=== PATIENT | female | born 1940 | race Hispanic/Latino ===

== ENCOUNTER 2017-02-09 15:09 | Emergency (ER) | payer MEDICARE ==
[2017-02-09 15:27] VITALS: BP 126/77
[2017-02-09 16:07] LABS: Basophils % (Auto) 0.8 % (0.0-1.8); Eosinophils % (Auto) 3.3 % (0.0-4.3); Hematocrit 40.4 % (30.3-42.9); Hemoglobin 13.4 gm/dl (10.1-14.3); Mean Corpuscular HGB Conc 33 % (30-34); Mean Corpuscular Hemoglobin 29 pg (28-32); Mean Corpuscular Volume 87 fl (79-97); Platelet Count 254 K/mm3 (140-440); Red Blood Count 4.66 M/mm3 (3.65-5.03); Red Cell Distribution Width 13.1 % (13.2-15.2); White Blood Count 9.4 K/mm3 (4.5-11.0)
[2017-02-09 16:10] LABS: Anion Gap 19 mmol/L; Blood Urea Nitrogen 22 mg/dL (7-17); Calcium 9.3 mg/dL (8.4-10.2); Carbon Dioxide 26 mmol/L (22-30); Chloride 99.9 mmol/L (98-107); Glucose 84 mg/dL (65-100); Potassium 3.8 mmol/L (3.6-5.0); Sodium 141 mmol/L (137-145)
== END 2017-02-09 22:00 | disposition left against medical advice (07) ==
LOC: ED 15:09
DX: R07.9 Chest pain, unspecified (principal); Z53.21 Procedure and treatment not carried out due to patient leaving prior to being seen by health care provider
CPT/HCPCS: 36415; 80048; 84484; 85025; 93005; 93010

== ENCOUNTER 2018-04-11 15:13 | Inpatient (IN) | payer MEDICARE ==
--- NOTE | 2018-04-11 15:59 | Cat Scan Report ---
FINAL REPORT EXAM: CT HEAD/BRAIN WO CON HISTORY: Stroke symptoms TECHNIQUE: CT of the head was performed without intravenous contrast. PRIORS: None. FINDINGS: The ventricles are normal in shape and position. The ventricles are nondilated. No intracranial hemorrhage, mass, mass effect, midline shift or evidence of acute ischemic infarct. The basilar cisterns are patent. Mild areas of low-attenuation are seen in the periventricular and subcortical white matter. The paranasal sinuses are clear. The extracranial soft tissues demonstrate no abnormality. The calvarium is intact. The orbits are intact. There is a left mastoid effusion. IMPRESSION: 1. No acute intracranial abnormality. 2. Mild findings of chronic microvascular ischemic disease. 3. Left mastoid effusion.
[2018-04-11 16:24] LABS: Basophils # (Auto) 0.1 K/mm3 (0.0-0.1); Eosinophils # (Auto) 0.2 K/mm3 (0.0-0.4); Eosinophils % (Auto) 2.6 % (0.0-4.3); Hematocrit 39.5 % (30.3-42.9); Hemoglobin 13.5 gm/dl (10.1-14.3); Lymphocytes # (Auto) 1.3 K/mm3 (1.2-5.4); Lymphocytes % (Auto) 19.7 % (13.4-35.0); Mean Corpuscular HGB Conc 34 % (30-34); Mean Corpuscular Hemoglobin 29 pg (28-32); Mean Corpuscular Volume 84 fl (79-97); Monocytes # (Auto) 0.7 K/mm3 (0.0-0.8); Monocytes % (Auto) 10.4 % (0.0-7.3); Platelet Count 278 K/mm3 (140-440); Red Blood Count 4.72 M/mm3 (3.65-5.03); Red Cell Distribution Width 12.7 % (13.2-15.2)
[2018-04-11 16:30] LABS: INR 0.94 (0.87-1.13)
[2018-04-11 16:31] LABS: Thrombin Time 14.8 Sec. (15.1-19.6)
[2018-04-11 16:32] LABS: Partial Thromboplastin Time 45.3 Sec. (24.2-36.6)
[2018-04-11 16:40] LABS: Albumin 4.2 g/dL (3.9-5); Calcium 9.8 mg/dL (8.4-10.2)
[2018-04-11] MEDS ORDERED: MILK OF MAGNESIA PO PRN (16:43)
[2018-04-11] MEDS ORDERED: TYLENOL PO PRN (16:43)
[2018-04-11] MEDS ORDERED: SODIUM CHLORIDE FLUSH SYRINGE 10 ML IV PRN (16:43)
[2018-04-11] MEDS ORDERED: DULCOLAX PR PRN (16:43)
[2018-04-11] MEDS ORDERED: PHENERGAN PR PRN (16:43)
[2018-04-11] MEDS ORDERED: ZOFRAN IV PRN (16:43)
[2018-04-11] MEDS ORDERED: REGLAN PO PRN (16:43)
--- NOTE | 2018-04-11 16:43 | History and Physical Report ---
History of Present Illness Chief complaint: I got weak on my left side History of present illness: 77 YO Female with HTN, Anxiety, GERD, OA, Spinal Stenosis, presents to ED for evaluation. Pt states that she experienced acute onset of Left arm and leg weakness as well as slurred speech and facial weakness today. Pt states that symptoms resolved 2 hours prior to presentation to the hospital. EMS notified and patient transported to [facility] for further care and evaluation. Pt seen and evaluated in ED and found to have symptoms consistent with CVA. Teleneurology notified. Pt deemed not to be a candidate for TPA. Pt admitted to Telemetry, and initiated on CVA protocol. Past History Past Medical History: arthritis, GERD, hypertension, other (anxiety) Past Surgical History: hysterectomy, Other ( left wrist surgery, fissurectomy, cataract surgery, eyelid surgery) Social history: , Lives alone. denies: smoking, alcohol abuse, prescription drug abuse Family history: hypertension Medications and Allergies Allergies Allergy/AdvReac Type Severity Reaction Status Date / Time codeine Allergy Unknown Verified 04/11/18 15:43 crabmeat Allergy Swelling Uncoded 04/11/18 15:43 Home Medications Medication Instructions Recorded Confirmed Last Taken Type Diltiazem HCl [Diltiazem ER] 120 mg PO BID 10/18/13 04/11/18 10/18/13 History Labetalol [Normodyne TAB] 200 mg PO TID 10/18/13 04/11/18 10/18/13 History Levothyroxine [Synthroid] 25 mcg PO DAILY 10/18/13 04/11/18 10/18/13 History Nortriptyline [Pamelor] 25 mg PO DAILY 10/18/13 04/11/18 10/18/13 History Pantoprazole [Protonix TAB] 40 mg PO QWEEK 10/18/13 04/11/18 10/18/13 History ALPRAZolam [Xanax TAB] 0.25 mg PO TID PRN 04/11/18 04/11/18 Unknown History traMADol [Ultram] 50 mg PO Q4HR PRN 04/11/18 04/11/18 Unknown History Review of Systems Constitutional: no weight loss, no weight gain, no fever, no chills Ears, nose, mouth and throat: no ear pain, no ear discharge, no tinnitis, no decreased hearing, no nose pain, no nasal congestion Breasts: no change in shape, no swelling, no mass Cardiovascular: no chest pain, no orthopnea, no palpitations, no rapid/ irregular heart beat Respiratory: no cough, no cough with sputum, no excessive sputum, no hemoptysis , no shortness of breath Gastrointestinal: no nausea, no vomiting, no diarrhea, no constipation, no change in bowel habits Genitourinary Female: no pelvic pain, no flank pain, no dysuria Rectal: no pain, no incontinence, no bleeding Musculoskeletal: no neck stiffness, no neck pain, no shooting arm pain, no low back pain, no shooting leg pain Integumentary: no rash, no pruritis, no redness, no sores, no wounds Neurological: transient paralysis, weakness, numbness, change in speech, motor disturbance, no paralysis, no parathesias, no tingling, no seizures Psychiatric: no anxiety, no memory loss, no change in sleep habits, no sleep disturbances, no insomnia, no hypersomnia, no change in appetite Endocrine: no cold intolerance, no heat intolerance, no polyphagia, no excessive thirst, no polydipsia, no polyuria, no nocturia, no excessive sweating Hematologic/Lymphatic: no easy bruising, no easy bleeding, no lymphadenopathy, no lymphedema Allergic/Immunologic: no urticaria, no allergic rhinitis, no wheezing Exam - Constitutional General appearance: Present: no acute distress, well-nourished - EENT Eyes: Present: PERRL ENT: hearing intact, clear oral mucosa - Neck Neck: Present: supple, normal ROM - Respiratory Respiratory effort: normal Respiratory: bilateral: CTA - Cardiovascular Heart Sounds: Present: S1 & S2. Absent: rub, click - Extremities Extremities: pulses symmetrical, No edema Peripheral Pulses: within normal limits - Abdominal General gastrointestinal: Present: soft, non-tender, non-distended, normal bowel sounds Female genitourinary: Present: normal - Integumentary Integumentary: Present: clear, warm, dry - Musculoskeletal Musculoskeletal: left sided weakness - Psychiatric Psychiatric: appropriate mood/affect, intact judgment & insight - Neurologic Neurologic: CNII-XII intact, moves all extremities Results - Labs CBC & Chem 7: 04/11/18 15:59 04/11/18 15:59 Labs: Abnormal lab results 04/11/18 04/11/18 04/11/18 Range/Units 15:59 15:59 15:59 RDW 12.7 L (13.2-15.2) % [place] % (Auto) 10.4 H (0.0-7.3) % APTT 45.3 H (24.2-36.6) Sec. Thrombin Time 14.8 L (15.1-19.6) Sec. BUN 24 H (7-17) mg/dL Creatinine 1.4 H (0.7-1.2) mg/dL Alkaline Phosphatase 149 H (35-129) units/L Assessment and Plan - Patient Problems (1) CVA (cerebral vascular accident) Current Visit: Yes Status: Acute Qualifiers: CVA mechanism: unspecified Qualified Code(s): I63.9 - Cerebral infarction, unspecified Plan to address problem: Stroke Protocol: Admit to telemetry, CT Head, MRI Brain, MRA Brain, Echo, Carotid Doppler, PT/OT/ Speech Therapy, EEG, Antiplatelet therapy (2) ARF (acute renal failure) Current Visit: Yes Status: Acute Qualifiers: Acute renal failure type: with acute tubular necrosis Qualified Code(s): N17.0 - Acute kidney failure with tubular necrosis Plan to address problem: IVF resuscitation, monitor UOP q shift, (3) DVT prophylaxis Current Visit: Yes Status: Acute
--- NOTE | 2018-04-11 16:47 | Emergency Department Report ---
ED Neuro Deficit HPI - General Chief Complaint: Neuro Symptoms/Deficit Stated Complaint: WEAKNESS Time Seen by Provider: 04/11/18 15:35 Source: EMS Mode of arrival: Stretcher Limitations: No Limitations - History of Present Illness Initial Comments: Patient is a 77-year-old female who is presenting with weakness. Patient states that she felt some mild weakness in the left lower extremity this morning which then resolved. Patient then started feeling a numbness sensation in the left upper and lower extremity as well as left face. This persisted since its onset approximately 2 hours ago. Patient's family called 911 with concern for stroke. Patient on walking to the ambulance noted that she was having some weakness in the left lower extremity again. Patient was unable to bear weight well. Patient denies any headache nausea vomiting diarrhea fevers chills cough cold congestion at this time. - Related Data Home Medications: Home Medications Medication Instructions Recorded Confirmed Last Taken ALPRAZolam [Xanax TAB] 0.5 mg PO BID 10/18/13 10/18/13 10/18/13 Aspirin [[place] Aspirin] 81 mg PO DAILY 10/18/13 10/18/13 10/18/13 Calcium Carbonate/Vitamin D3 10/18/13 10/18/13 10/18/13 [Calcium 600 + Vit D3 Tablet] Diltiazem HCl [Diltiazem ER] 120 mg PO BID 10/18/13 10/18/13 10/18/13 Gluc [place]/MSM/Magnesium/Vit C BID 10/18/13 10/18/13 10/18/13 [Glucosamine Complex-MSM Cap] Labetalol [Normodyne TAB] 200 mg PO TID 10/18/13 10/18/13 10/18/13 Levothyroxine [Synthroid] 25 mcg PO DAILY 10/18/13 10/18/13 10/18/13 Multivitamin [Multi Vitamin Daily] 10/18/13 10/18/13 10/18/13 Nortriptyline [Pamelor] 25 mg PO DAILY 10/18/13 10/18/13 10/18/13 Pantoprazole [Protonix TAB] 40 mg PO DAILY 10/18/13 10/18/13 10/18/13 Simvastatin [Zocor] 20 mg PO QHS 10/18/13 10/18/13 10/18/13 cloNIDine [Catapres] 0.1 mg PO BID 10/18/13 10/18/13 Unknown Allergies/Adverse Reactions: Allergies Allergy/AdvReac Type Severity Reaction Status Date / Time codeine Allergy Unknown Verified 04/11/18 15:43 crabmeat Allergy Swelling Uncoded 04/11/18 15:43 ED Review of Systems ROS: Stated complaint: WEAKNESS Other details as noted in HPI Comment: All other systems reviewed and negative ED Past Medical Hx - Past Medical History Previous Medical History?: Yes Hx Hypertension: Yes Hx GERD: Yes Hx Arthritis: Yes Additional medical history: spinal stenosis - Surgical History Past Surgical History?: Yes Additional Surgical History: hysterectomy, left wrist surgery, fissurectomy, cataract surgery, eyelid surgery - Social History Smoking Status: Never Smoker - Medications Home Medications: Home Medications Medication Instructions Recorded Confirmed Last Taken Type ALPRAZolam [Xanax TAB] 0.5 mg PO BID 10/18/13 10/18/13 10/18/13 History Aspirin [[place] Aspirin] 81 mg PO DAILY 10/18/13 10/18/13 10/18/13 History Calcium Carbonate/Vitamin D3 10/18/13 10/18/13 10/18/13 History [Calcium 600 + Vit D3 Tablet] Diltiazem HCl [Diltiazem ER] 120 mg PO BID 10/18/13 10/18/13 10/18/13 History Gluc [place]/MSM/Magnesium/Vit C BID 10/18/13 10/18/13 10/18/13 History [Glucosamine Complex-MSM Cap] Labetalol [Normodyne TAB] 200 mg PO TID 10/18/13 10/18/13 10/18/13 History Levothyroxine [Synthroid] 25 mcg PO DAILY 10/18/13 10/18/13 10/18/13 History Multivitamin [Multi Vitamin Daily] 10/18/13 10/18/13 10/18/13 History Nortriptyline [Pamelor] 25 mg PO DAILY 10/18/13 10/18/13 10/18/13 History Pantoprazole [Protonix TAB] 40 mg PO DAILY 10/18/13 10/18/13 10/18/13 History Simvastatin [Zocor] 20 mg PO QHS 10/18/13 10/18/13 10/18/13 History cloNIDine [Catapres] 0.1 mg PO BID 10/18/13 10/18/13 Unknown History ED Neuro Physical Exam - General Limitations: No Limitations General appearance: alert, in no apparent distress Suspected Stroke: Yes - Head Head exam: Present: atraumatic, normocephalic - Eye Eye exam: Present: normal appearance - ENT ENT exam: Present: mucous membranes moist - Neck Neck exam: Present: normal inspection - Respiratory Respiratory exam: Present: normal lung sounds bilaterally. Absent: respiratory distress, wheezes, rales, rhonchi - Cardiovascular Cardiovascular Exam: Present: regular rate, normal rhythm. Absent: systolic murmur, diastolic murmur, rubs, gallop - GI/Abdominal GI/Abdominal exam: Present: soft, normal bowel sounds. Absent: distended, tenderness, guarding, rebound - Extremities Exam Extremities exam: Present: normal inspection - Back Exam Back exam: Present: normal inspection - Neurological Exam Neurological exam: Present: alert, oriented X3 - NIHSS Assessment Interval: Baseline 1a. Level of Consciousness: alert 1b. LOC Questions: answers correctly 1c. LOC Commands: performs tasks correctly 2. Best Gaze: normal 3. Visual: no visual loss 4. Facial Palsy: normal symmetrical movement 5b. Motor Arm Right: no drift 5a. Motor Arm Left: no drift 6a. Motor Leg Left: no drift 6b. Motor Leg Right: no drift 7. Limb Ataxia: absent 8. Sensory: mild/moderate sensory loss 9. Best Language: no aphasia 10. Dysarthria: normal 11. Extinction/Inattention: no abnormality Total Score: 1 Stroke Severity: Minor Stroke - Psychiatric Psychiatric exam: Present: normal affect, normal mood - Skin Skin exam: Present: warm, dry, intact, normal color. Absent: rash - Lab Data Result diagrams: 04/11/18 15:59 04/11/18 15:59 Lab Results 04/11/18 04/11/18 04/11/18 Range/Units 15:59 15:59 15:59 WBC 6.6 (4.5-11.0) K/mm3 RBC 4.72 (3.65-5.03) M/mm3 Hgb 13.5 (10.1-14.3) gm/dl Hct 39.5 (30.3-42.9) % MCV 84 (79-97) fl MCH 29 (28-32) pg MCHC 34 (30-34) % RDW 12.7 L (13.2-15.2) % Plt Count 278 (140-440) K/mm3 Lymph % (Auto) 19.7 (13.4-35.0) % [place] % (Auto) 10.4 H (0.0-7.3) % Eos % (Auto) 2.6 (0.0-4.3) % Baso % (Auto) 1.0 (0.0-1.8) % Lymph # 1.3 (1.2-5.4) K/mm3 [place] # 0.7 (0.0-0.8) K/mm3 Eos # 0.2 (0.0-0.4) K/mm3 Baso # 0.1 (0.0-0.1) K/mm3 Seg Neutrophils % 66.3 (40.0-70.0) % Seg Neutrophils # 4.4 (1.8-7.7) K/mm3 PT 13.0 (12.2-14.9) Sec. INR 0.94 (0.87-1.13) APTT 45.3 H (24.2-36.6) Sec. Thrombin Time 14.8 L (15.1-19.6) Sec. Sodium (137-145) mmol/L Potassium (3.6-5.0) mmol/L Chloride (98-107) mmol/L Carbon Dioxide (22-30) mmol/L Anion Gap mmol/L BUN (7-17) mg/dL Creatinine (0.7-1.2) mg/dL Estimated GFR ml/min BUN/Creatinine Ratio % Glucose (65-100) mg/dL Calcium (8.4-10.2) mg/dL Total Bilirubin (0.1-1.2) mg/dL AST (5-40) units/L ALT (7-56) units/L Alkaline Phosphatase (35-129) units/L CK-MB (CK-2) 2.0 (0.0-4.0) ng/mL Troponin T < 0.010 (0.00-0.029) ng/mL Total Protein (6.3-8.2) g/dL Albumin (3.9-5) g/dL Albumin/Globulin Ratio % 04/11/ Range/Units 15:59 WBC (4.5-11.0) K/mm3 RBC (3.65-5.03) M/mm3 Hgb (10.1-14.3) gm/dl Hct (30.3-42.9) % MCV (79-97) fl MCH (28-32) pg MCHC (30-34) % RDW (13.2-15.2) % Plt Count (140-440) K/mm3 Lymph % (Auto) (13.4-35.0) % [place] % (Auto) (0.0-7.3) % Eos % (Auto) (0.0-4.3) % Baso % (Auto) (0.0-1.8) % Lymph # (1.2-5.4) K/mm3 [place] # (0.0-0.8) K/mm3 Eos # (0.0-0.4) K/mm3 Baso # (0.0-0.1) K/mm3 Seg Neutrophils % (40.0-70.0) % Seg Neutrophils # (1.8-7.7) K/mm3 PT (12.2-14.9) Sec. INR (0.87-1.13) APTT (24.2-36.6) Sec. Thrombin Time (15.1-19.6) Sec. Sodium 139 (137-145) mmol/L Potassium 3.9 (3.6-5.0) mmol/L Chloride 100.5 (98-107) mmol/L Carbon Dioxide 27 (22-30) mmol/L Anion Gap 15 mmol/L BUN 24 H (7-17) mg/dL Creatinine 1.4 H (0.7-1.2) mg/dL Estimated GFR 36 ml/min BUN/Creatinine Ratio 17 % Glucose 81 (65-100) mg/dL Calcium 9.8 (8.4-10.2) mg/dL Total Bilirubin 0.30 (0.1-1.2) mg/dL AST 19 (5-40) units/L ALT 13 (7-56) units/L Alkaline Phosphatase 149 H (35-129) units/L CK-MB (CK-2) (0.0-4.0) ng/mL Troponin T (0.00-0.029) ng/mL Total Protein 7.1 (6.3-8.2) g/dL Albumin 4.2 (3.9-5) g/dL Albumin/Globulin Ratio 1.4 % - EKG Data -: EKG Interpreted by Me EKG shows normal: sinus rhythm, axis, intervals, QRS complexes, ST-T waves Rate: normal Interpretation: normal EKG - Radiology Data CT of the head shows no acute process - Medical Decision Making Dr. Trinidad with neurology was consulted. He saw this patient via bedside robot. Patien was assessed L it was agreed that the patient does have symptoms that are suggestive of a very mild CVA. Patient's NIH score is less than 2 and the indications for TPA are not there. Patient will be admitted will be given aspirin and will be admitted to the hospital service at this time. T is Critical Care Time: Yes Critical care time in (mins) excluding proc time.: 30 Critical care attestation.: If time is entered above; I have spent that time in minutes in the direct care of this critically ill patient, excluding procedure time. ED Disposition Clinical Impression: Paresthesia CVA (cerebral vascular accident) Qualifiers: CVA mechanism: unspecified Qualified Code(s): I63.9 - Cerebral infarction, unspecified Disposition: DC-09 OP ADMIT IP TO THIS HOSP Is pt being admited?: Yes Does the pt Need Aspirin: No Condition: Stable Referrals: PRIMARY CARE, [Primary Care Provider] - 3-5 Days
[2018-04-11] MEDS ORDERED: PRAVACHOL PO SCH (22:00)
[2018-04-11] MEDS ORDERED: NON-FORMULARY (Simvastatin 20 MG) PO SCH (22:00)
[2018-04-11] MEDS: PEPCID PO SCH (22:36)
[2018-04-11] MEDS: XANAX PO SCH (22:36)
[2018-04-12] MEDS: SYNTHROID PO SCH (05:39)
[2018-04-12 06:47] LABS: Chol/HDL Ratio 3.29 %
[2018-04-12] MEDS: ASPIRIN PO SCH (09:13)
[2018-04-12] MEDS: PEPCID PO SCH (09:13)
[2018-04-12] MEDS: PAMELOR PO SCH (09:13)
[2018-04-12] MEDS: PROTONIX PO SCH (09:13)
[2018-04-12] MEDS: XANAX PO SCH ×2 (09:14→22:05)
--- NOTE | 2018-04-12 11:33 | Magnetic Resonance Report ---
MRI OF THE BRAIN WITHOUT CONTRAST: HISTORY: Stroke PROCEDURE: Multiplanar, multisequence MR imaging of the brain without IV contrast was performed. FINDINGS: Compared to the CT head dated 04/11/18. MR demonstrates a linear area of diffusion restriction in the posterolateral right thalamus measuring 2 x 9 mm on image 16. No other areas of diffusion restriction are identified. There is no evidence for hemorrhage, mass or extra-axial fluid collection. A 5 mm chronic infarct is identified in the posterior right cerebellar hemisphere on T2 image 7. No additional chronic infarct is appreciated. Mild nonspecific chronic white matter changes are noted. The midline structures are central. The basal cisterns are patent. Normal ventricular size. The orbital cavities and sella turcica demonstrate no abnormality. The visualized paranasal sinuses and mastoid air cells are well aerated. IMPRESSION: Focal subacute ischemic infarct in the right thalamus as described above. Chronic 5 mm infarct in the right cerebellum. Mild nonspecific chronic white matter changes.
--- NOTE | 2018-04-12 11:36 | Magnetic Resonance Report ---
MRA HEAD WITHOUT CONTRAST HISTORY: Stroke. [id number] imaging with MIP reformations of the s[place]ogon of [place] is submitted. The right ICA is occluded. There is filling of the right SAMIA and right MCA via an anterior communicating artery and a right posterior communicating artery. There is otherwise normal endovascular signal throughout the anterior and posterior circulations. No evidence for hemodynamically significant stenosis, occlusion or aneurysm. IMPRESSION: Occluded right ICA. The cerebral arteries are patent.
--- NOTE | 2018-04-12 14:48 | Progress Note ---
Assessment and Plan Assessment and plan: 77 YO Female with HTN, Anxiety, GERD, OA, Spinal Stenosis, presents to ED for evaluation. Pt states that she experienced acute onset of Left arm and leg weakness as well as slurred speech and facial weakness carotid doppler VASCULAR LAB PRELIMINARY REPORT RT ICA APPEARS OCCLUDED LT <50% STENOSIS BY DOPPLER VELOCITIES BILATERAL ANTEGRADE VERTEBRAL FLOW MR brain Focal subacute ischemic infarct in the right thalamus as described above. Chronic 5 mm infarct in the right cerebellum. Mild nonspecific chronic white matter changes. MRA brain Occluded right ICA. The cerebral arteries are patent. CVA continue stroke protocol, likely related on carotid stenosis, will consult vascular and neuro LDL 168, HDL 72, has not taken asa in 2 wks, per her opthalmologist, planned for eye surgery she self stopped statin many months ago, because she heard "its bad for you" Rt ICVA occlusion vascular sx consult ARF (acute renal failure) likely vasomotor nephropathy, IVF, recheck BMP in am DVT prophylaxis Current Visit: Yes Status: Acute History Interval history: Review of systems Constitutional: No fevers, no malaise, no joint pains CVS: No chest pain, no orthopnea, no dyspnea on exertion, no pedal edema GI: No abdominal pain, no diarrhea, no vomiting, no constipation Respiratory: No shortness of breath, no wheezing, no coughing Hospitalist Physical - Physical exam Narrative exam: General.: Appears well, no distress, nontoxic HEENT: Moist mucous membranes, extraocular muscles intact, no lymphadenopathy Neck: supple Cardiac: S1-S2 heard Lungs: clear to auscultation bilaterally Abdomen: soft , nontender, nondistended, bowel sounds positive Extremities: no edema clubbing or cyanosis Skin: no rash or lesions Neurologic: no gross focal deficits Psych: appropriate behavior, appropriate mood, corporative, judgment intact - Constitutional Vitals: Temp Pulse Resp BP Pulse Ox 97.5 F L 75 18 158/75 96 04/12/18 05:09 04/12/18 05:09 04/12/18 10:00 04/12/18 05:09 04/12/18 05:09 General appearance: Present: no acute distress, well-nourished Results - Labs CBC & Chem 7: 04/11/18 15:59 04/11/18 15:59 Labs: Laboratory Last Values WBC 6.6 K/mm3 (4.5-11.0) 04/11/18 15:59 RBC 4.72 M/mm3 (3.65-5.03) 04/11/18 15:59 Hgb 13.5 gm/dl (10.1-14.3) 04/11/18 15:59 Hct 39.5 % (30.3-42.9) 04/11/18 15:59 MCV 84 fl (79-97) 04/11/18 15:59 MCH 29 pg (28-32) 04/11/18 15:59 MCHC 34 % (30-34) 04/11/18 15:59 RDW 12.7 % (13.2-15.2) L 04/11/18 15:59 Plt Count 278 K/mm3 (140-440) 04/11/18 15:59 Lymph % (Auto) 19.7 % (13.4-35.0) 04/11/18 15:59 [place] % (Auto) 10.4 % (0.0-7.3) H 04/11/18 15:59 Eos % (Auto) 2.6 % (0.0-4.3) 04/11/18 15:59 Baso % (Auto) 1.0 % (0.0-1.8) 04/11/18 15:59 Lymph # 1.3 K/mm3 (1.2-5.4) 04/11/18 15:59 [place] # 0.7 K/mm3 (0.0-0.8) 04/11/18 15:59 Eos # 0.2 K/mm3 (0.0-0.4) 04/11/18 15:59 Baso # 0.1 K/mm3 (0.0-0.1) 04/11/18 15:59 Seg Neutrophils % 66.3 % (40.0-70.0) 04/11/18 15:59 Seg Neutrophils # 4.4 K/mm3 (1.8-7.7) 04/11/18 15:59 PT 13.0 Sec. (12.2-14.9) 04/11/18 15:59 INR 0.94 (0.87-1.13) 04/11/18 15:59 APTT 45.3 Sec. (24.2-36.6) H 04/11/18 15:59 Thrombin Time 14.8 Sec. (15.1-19.6) L 04/11/18 15:59 Sodium 139 mmol/L (137-145) 04/11/18 15:59 Potassium 3.9 mmol/L (3.6-5.0) 04/11/18 15:59 Chloride 100.5 mmol/L (98-107) 04/11/18 15:59 Carbon Dioxide 27 mmol/L (22-30) 04/11/18 15:59 Anion Gap 15 mmol/L 04/11/18 15:59 BUN 24 mg/dL (7-17) H 04/11/18 15:59 Creatinine 1.4 mg/dL (0.7-1.2) H 04/11/18 15:59 Estimated GFR 36 ml/min 04/11/18 15:59 BUN/Creatinine Ratio 17 % 04/11/18 15:59 Glucose 81 mg/dL (65-100) 04/11/18 15:59 Calcium 9.8 mg/dL (8.4-10.2) 04/11/18 15:59 Total Bilirubin 0.30 mg/dL (0.1-1.2) 04/11/18 15:59 AST 19 units/L (5-40) 04/11/18 15:59 ALT 13 units/L (7-56) 04/11/18 15:59 Alkaline Phosphatase 149 units/L (35-129) H 04/11/18 15:59 Total Creatine Kinase 50 units/L (30-135) 04/11/18 15:59 CK-MB (CK-2) 2.0 ng/mL (0.0-4.0) 04/11/18 15:59 CK-MB (CK-2) Rel Index 4.0 (0-4) 04/11/18 15:59 Troponin T < 0.010 ng/mL (0.00-0.029) 04/11/18 15:59 Total Protein 7.1 g/dL (6.3-8.2) 04/11/18 15:59 Albumin 4.2 g/dL (3.9-5) 04/11/18 15:59 Albumin/Globulin Ratio 1.4 % 04/11/18 15:59 Triglycerides 136 mg/dL (2-149) 04/12/18 06:05 Cholesterol 237 mg/dL (50-199) H 04/12/18 06:05 LDL Cholesterol Direct 168 mg/dL (50-130) H 04/12/18 06:05 HDL Cholesterol 72 mg/dL (40-59) H 04/12/18 06:05 Cholesterol/HDL Ratio 3.29 % 04/12/18 06:05
[2018-04-12] MEDS ORDERED: BENADRYL PO ONE (21:50)
[2018-04-13] MEDS: SYNTHROID PO SCH (06:07)
[2018-04-13] MEDS: XANAX PO SCH ×2 (10:26→21:43)
[2018-04-13] MEDS: PROTONIX PO SCH (10:26)
[2018-04-13] MEDS: ASPIRIN PO SCH (10:26)
[2018-04-13] MEDS: PAMELOR PO SCH (10:26)
[2018-04-13] MEDS: APRESOLINE IV PRN ×2 (11:25→18:31)
[2018-04-13] MEDS ORDERED: ULTRAM PO PRN (14:31)
[2018-04-13] MEDS ORDERED: XANAX PO PRN (14:31)
[2018-04-13] MEDS ORDERED: BENADRYL PO PRN (14:33)
[2018-04-13] MEDS: NACL 0.45% 1000 ML 1,000 ML IV SCH ×2 (14:34→22:53)
--- NOTE | 2018-04-13 14:42 | Progress Note ---
Hospitalist Physical - Constitutional Vitals: Temp Pulse Resp BP Pulse Ox 98.1 F 113 H 18 190/110 94 04/13/18 00:03 04/13/18 11:25 04/13/18 00:03 04/13/18 11:25 04/13/18 00:03 General appearance: Present: no acute distress, well-nourished Results - Labs CBC & Chem 7: 04/11/18 15:59 04/11/18 15:59 Labs: Laboratory Last Values WBC 6.6 K/mm3 (4.5-11.0) 04/11/18 15:59 RBC 4.72 M/mm3 (3.65-5.03) 04/11/18 15:59 Hgb 13.5 gm/dl (10.1-14.3) 04/11/18 15:59 Hct 39.5 % (30.3-42.9) 04/11/18 15:59 MCV 84 fl (79-97) 04/11/18 15:59 MCH 29 pg (28-32) 04/11/18 15:59 MCHC 34 % (30-34) 04/11/18 15:59 RDW 12.7 % (13.2-15.2) L 04/11/18 15:59 Plt Count 278 K/mm3 (140-440) 04/11/18 15:59 Lymph % (Auto) 19.7 % (13.4-35.0) 04/11/18 15:59 [place] % (Auto) 10.4 % (0.0-7.3) H 04/11/18 15:59 Eos % (Auto) 2.6 % (0.0-4.3) 04/11/18 15:59 Baso % (Auto) 1.0 % (0.0-1.8) 04/11/18 15:59 Lymph # 1.3 K/mm3 (1.2-5.4) 04/11/18 15:59 [place] # 0.7 K/mm3 (0.0-0.8) 04/11/18 15:59 Eos # 0.2 K/mm3 (0.0-0.4) 04/11/18 15:59 Baso # 0.1 K/mm3 (0.0-0.1) 04/11/18 15:59 Seg Neutrophils % 66.3 % (40.0-70.0) 04/11/18 15:59 Seg Neutrophils # 4.4 K/mm3 (1.8-7.7) 04/11/18 15:59 PT 13.0 Sec. (12.2-14.9) 04/11/18 15:59 INR 0.94 (0.87-1.13) 04/11/18 15:59 APTT 45.3 Sec. (24.2-36.6) H 04/11/18 15:59 Thrombin Time 14.8 Sec. (15.1-19.6) L 04/11/18 15:59 Sodium 139 mmol/L (137-145) 04/11/18 15:59 Potassium 3.9 mmol/L (3.6-5.0) 04/11/18 15:59 Chloride 100.5 mmol/L (98-107) 04/11/18 15:59 Carbon Dioxide 27 mmol/L (22-30) 04/11/18 15:59 Anion Gap 15 mmol/L 04/11/18 15:59 BUN 24 mg/dL (7-17) H 04/11/18 15:59 Creatinine 1.4 mg/dL (0.7-1.2) H 04/11/18 15:59 Estimated GFR 36 ml/min 04/11/18 15:59 BUN/Creatinine Ratio 17 % 04/11/18 15:59 Glucose 81 mg/dL (65-100) 04/11/18 15:59 Calcium 9.8 mg/dL (8.4-10.2) 04/11/18 15:59 Total Bilirubin 0.30 mg/dL (0.1-1.2) 04/11/18 15:59 AST 19 units/L (5-40) 04/11/18 15:59 ALT 13 units/L (7-56) 04/11/18 15:59 Alkaline Phosphatase 149 units/L (35-129) H 04/11/18 15:59 Total Creatine Kinase 50 units/L (30-135) 04/11/18 15:59 CK-MB (CK-2) 2.0 ng/mL (0.0-4.0) 04/11/18 15:59 CK-MB (CK-2) Rel Index 4.0 (0-4) 04/11/18 15:59 Troponin T < 0.010 ng/mL (0.00-0.029) 04/11/18 15:59 Total Protein 7.1 g/dL (6.3-8.2) 04/11/18 15:59 Albumin 4.2 g/dL (3.9-5) 04/11/18 15:59 Albumin/Globulin Ratio 1.4 % 04/11/18 15:59 Triglycerides 136 mg/dL (2-149) 04/12/18 06:05 Cholesterol 237 mg/dL (50-199) H 04/12/18 06:05 LDL Cholesterol Direct 168 mg/dL (50-130) H 04/12/18 06:05 HDL Cholesterol 72 mg/dL (40-59) H 04/12/18 06:05 Cholesterol/HDL Ratio 3.29 % 04/12/18 06:05
[2018-04-13] MEDS ORDERED: DILTIAZEM HCL 120 MG PO SCH (14:45)
[2018-04-13] MEDS: HALFPRIN EC PO SCH (17:16)
--- NOTE | 2018-04-13 18:17 | Consultation ---
History of Present Illness - Reason for Consult Consult date: 04/13/18 Right Carotid Occlusion with CVA Requesting physician: LASHONDA VALDEZ - History of Present Illness This pt is a 77 yo female that was admitted on 04/11/18 due to an acute onset of left sided numbness and weakness. She states she awoke, not feeling right. However, she later attempted to get out of her chair to ambulate to her kitchen and was unable to bear weight on her left leg. She also c/o numbness to her left foot and hand at the same time. EMS was activated and she was transported to the hospital. Teleneurology was consulted. She was felt to have likely suffered a stroke by outside of the time window to receive TPA. A MRI showed a focal subacute ischemic right thalamic stroke with a chronic 5mm right cerebellar infarct. A carotid duplex and MRI suggest a right carotid artery occlusion without significant stenosis on the left. A vascular surgery consult has been requested to further evaluate. The pt has a h/o a previous stroke in ~2002. She reports to have been told that her right carotid artery was occluded at that time (though no documentation can confirm this). She was placed on Coumadin at that time and was subsequently converted to antiplatelet therapy. She was told to hold her aspirin about 2 weeks ago for a bilateral eyelid surgery which was scheduled to be performed this coming Monday. The pt states her weakness has improved, but she continues to have numbness to her entire right side. Past History Past Medical History: arthritis, GERD, hypertension, other (anxiety, Chronic back pain with multiple disc herniations per pt report) Past Surgical History: hysterectomy, Other ( left wrist surgery, fissurectomy, cataract surgery, eyelid surgery) Social history: (Pt and husbands 58th anniversity will be in 3 days), lives with family. denies: smoking, alcohol abuse, prescription drug abuse Family history: hypertension Medications and Allergies Allergies Allergy/AdvReac Type Severity Reaction Status Date / Time codeine Allergy Unknown Verified 04/11/18 15:43 crabmeat Allergy Swelling Uncoded 04/11/18 15:43 Home Medications Medication Instructions Recorded Confirmed Last Taken Type Diltiazem HCl [Diltiazem ER] 120 mg PO BID 10/18/13 04/11/18 10/18/13 History Labetalol [Normodyne TAB] 200 mg PO TID 10/18/13 04/11/18 10/18/13 History Levothyroxine [Synthroid] 25 mcg PO DAILY 10/18/13 04/11/18 10/18/13 History Nortriptyline [Pamelor] 25 mg PO DAILY 10/18/13 04/11/18 10/18/13 History Pantoprazole [Protonix TAB] 40 mg PO QWEEK 10/18/13 04/11/18 10/18/13 History ALPRAZolam [Xanax TAB] 0.25 mg PO TID PRN 04/11/18 04/11/18 Unknown History traMADol [Ultram] 50 mg PO Q4HR PRN 04/11/18 04/11/18 Unknown History Aspirin [Aspir-Low] 81 mg PO DAILY 04/13/18 04/13/18 1 Day Ago History ~04/12/18 Calcium Carbonate/Vitamin D3 1 tab PO QDAY 04/13/18 04/13/18 Unknown History [Calcium 600 with Vit D Chew Tb] Diltiazem HCl [Diltiazem ER] 120 mg PO BID 04/13/18 04/13/18 1 Day Ago History ~04/12/18 Glucosamine HCl 1,500 mg PO BID 04/13/18 04/13/18 1 Day Ago History ~04/12/18 Labetalol HCl 200 mg PO TID 04/13/18 04/13/18 Unknown History Ranitidine HCl [Acid Control] 150 mg PO DAILY 04/13/18 04/13/18 1 Day Ago History ~04/12/18 Active Meds: Active Medications Acetaminophen (Tylenol) 650 mg PO Q4H PRN PRN Reason: Pain, Mild (1-3) Last Admin: 04/13/18 17:14 Dose: 650 mg Alprazolam (Xanax) 0.5 mg PO BID [facility] Last Admin: 04/13/18 10:26 Dose: 0.5 mg Alprazolam (Xanax) 0.25 mg PO TID PRN PRN Reason: Anxiety Last Admin: 04/13/18 17:16 Dose: 0.25 mg Aspirin (Halfprin Ec) 81 mg PO DAILY [facility] Last Admin: 04/13/18 17:16 Dose: 81 mg Atorvastatin Calcium (Lipitor) 40 mg PO QHS [facility] Last Admin: 04/12/18 22:07 Dose: 40 mg Bisacodyl (Dulcolax) 10 mg [place] QDAY PRN PRN Reason: Constipation Calcium/Vitamin D (Oysco D 500 Mg-200 Unit) 1 each PO QDAY [facility] Diltiazem HCl (Cardizem Cd) 120 mg PO BID [facility] Diphenhydramine HCl (Benadryl) 25 mg PO Q6H PRN PRN Reason: Itching Hydralazine HCl (Apresoline) 5 mg IV Q6HR PRN PRN Reason: Hypertension Last Admin: 04/13/18 11:25 Dose: 5 mg Sodium Chloride (Nacl 0.45% 1000 Ml) 1,000 mls @ 125 mls/hr IV DIRECT [facility] Last Admin: 04/13/18 14:34 Dose: 125 mls/hr Labetalol HCl (Normodyne) 200 mg PO TID [facility] Levothyroxine Sodium (Synthroid) 25 mcg PO DAILY@0600 [facility] Last Admin: 04/13/18 06:07 Dose: 25 mcg Magnesium Hydroxide (Milk Of Magnesia) 30 ml PO Q4H PRN PRN Reason: Constipation Metoclopramide HCl (Reglan) 10 mg PO Q6H PRN PRN Reason: Nausea And Vomiting Miscellaneous Medication (Glucosamine Hcl [Glucosamine Hcl]) 1,500 mg PO BID [facility] Miscellaneous Medication (Ranitidine Hcl [Acid Control]) 150 mg PO DAILY [facility] Nortriptyline HCl (Pamelor) 25 mg PO DAILY [facility] Last Admin: 04/13/18 10:26 Dose: 25 mg Ondansetron HCl (Zofran) 4 mg IV Q8H PRN PRN Reason: N/V unrelieved by Reglan Pantoprazole Sodium (Protonix) 40 mg PO DAILY [facility] Last Admin: 04/13/18 10:26 Dose: 40 mg Promethazine HCl (Phenergan) 25 mg MS Q6H PRN PRN Reason: Nausea And Vomiting Sodium Chloride (Sodium Chloride Flush Syringe 10 Ml) 10 ml IV PRN PRN PRN Reason: LINE FLUSH Tramadol HCl (Ultram) 50 mg PO Q4HR PRN PRN Reason: Pain Review of Systems All systems: negative Exam - Constitutional Vitals: Temp Pulse Resp BP Pulse Ox 98.1 F 113 H 18 190/110 94 04/13/18 00:03 04/13/18 11:25 04/13/18 00:03 04/13/18 11:25 04/13/18 00:03 General appearance: Present: no acute distress - EENT Eyes: Present: EOM intact ENT: hearing intact - Neck Neck: Present: supple - Respiratory Respiratory effort: normal - Extremities Extremities: no ischemia - Psychiatric Psychiatric: appropriate mood/affect, intact judgment & insight, cooperative - Neurologic Neurologic: other (right sided numbness) Results - Labs CBC & Chem 7: 04/11/18 15:59 04/11/18 15:59 Assessment and Plan This pt presents with an acute onset of left sided numbness and weakness. MRI was reported as sub-acute right thalamic CVA. H/o previous chronic R cerebellar infarct. She was on anti-platelet medication (Aspirin) until approximately 2 weeks ago. This was held in prep for a 2nd eyelid surgery. Carotid duplex and MRA (time of flight) suggest right carotid artery occlusion. This is consistent with the history provided from the pt from a previous stroke approximately 15 years ago. Unfortunately, neither study is reliable to exclude string sign. Right carotid artery occlusion is based (at this point) purely upon the pt provided history (which is certainly subject to her misinterpretation). Given how long ago this happened, it can not currently be corroborated with either hospital or office records. If the carotid is occluded then surgery is not indicated. The pt will need a CT angiogram of the neck to confirm carotid artery occlusion. She has TRICIA and will need gaby-angiogram hydration to protect against contrast nephrology. This certainly poses a risk of further kidney injury. Given the circumstances, the overall risk of the study vs. potential for future events should be considered. If the carotid is occluded, this could represent a carotid stump syndrome vs small vessel disease. Agree with neurology consult to determine best medical management. Await their assessment. - Patient Problems (1) Carotid stenosis with cerebral infarction less than 8 weeks ago Current Visit: Yes Status: Acute (2) Carotid occlusion, right Current Visit: Yes Status: Suspected (3) CVA (cerebral vascular accident) Current Visit: Yes Status: Acute Qualifiers: CVA mechanism: unspecified Qualified Code(s): I63.9 - Cerebral infarction, unspecified (4) ARF (acute renal failure) Current Visit: Yes Status: Acute Qualifiers: Acute renal failure type: with acute tubular necrosis Qualified Code(s): N17.0 - Acute kidney failure with tubular necrosis
--- NOTE | 2018-04-13 18:31 | Consultation ---
History of Present Illness Consult date: 04/13/18 Requesting physician: LASHONDA HESS Reason for Consult: stroke Chief complaint: stroke History of present illness: This 77-year-old right-handed white female noted a feeling of falling over to her left but would catch herself once or twice a week or 2 ago. On April 11 she did not feel good but cannot define that feeling, but was able to help her put groceries in cabinets but then sat down and felt shaky, blood pressure was checked but okay and then tried to take 3 steps and couldn't support herself and noted left-sided numbness from face down to her foot and was taken to the hospital. She was also weak on the left side and developed a pins and needles feeling in the left hand and foot. She was better yesterday and was able to walk with a walker though was not attempted today because physical therapy wouldn't see her because of her heart rate being high. She has had no difficulty with speech or swallowing. She had been off aspirin 81 mg for nearly 2 weeks for upcoming eyelid surgery. She does not know if Zocor or Lipitor bothered her in the past (though Lipitor didn't bother taken yesterday) so she got a non-statin medication from her PCP. Due to some mixup, she did not get a refill of it. Today she still has some pins and needles in the left foot and hand and she thinks some numbness of the left arm. MRA of head showed occlusion of right ICA. MRI showed small right basal ganglia acute infarct and old right lacunar cerebellar hemisphere infarct. 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 Occlusion of the right internal carotid artery was found at the time and treated initially with Plavix. Later for unknown reason she was placed on warfarin but complained of having to get so many blood tests and was later put back on Plavix and later changed to just the 81 mg aspirin. Past History Past Medical History: arthritis, GERD, hypertension (takes diltiazem and labetalol and also when necessary, clonidine), stroke (2 right eye with loss of vision to right eye with loss of vision and right internal carotid artery occlusion), other (anxiety) Past Surgical History: hysterectomy, Other ( left wrist surgery, fissurectomy, cataract surgery, eyelid surgery) Social history: (2 children, 3 grandchildren), Lives alone, other ( worked as an insurance counselor but retired). denies: smoking, alcohol abuse, prescription drug abuse (never) Family history: diabetes (mother (diet-controlled), sister), hypertension (both parents, 2 sisters and a brother), stroke (fatal in both parents, no history of aneurysms in the family), other (no history of epilepsy) Medications and Allergies Allergies Allergy/AdvReac Type Severity Reaction Status Date / Time codeine Allergy Unknown Verified 04/11/18 15:43 crabmeat Allergy Swelling Uncoded 04/11/18 15:43 Home Medications Medication Instructions Recorded Confirmed Last Taken Type Diltiazem HCl [Diltiazem ER] 120 mg PO BID 10/18/13 04/11/18 10/18/13 History Labetalol [Normodyne TAB] 200 mg PO TID 10/18/13 04/11/18 10/18/13 History Levothyroxine [Synthroid] 25 mcg PO DAILY 10/18/13 04/11/18 10/18/13 History Nortriptyline [Pamelor] 25 mg PO DAILY 10/18/13 04/11/18 10/18/13 History Pantoprazole [Protonix TAB] 40 mg PO QWEEK 10/18/13 04/11/18 10/18/13 History ALPRAZolam [Xanax TAB] 0.25 mg PO TID PRN 04/11/18 04/11/18 Unknown History traMADol [Ultram] 50 mg PO Q4HR PRN 04/11/18 04/11/18 Unknown History Aspirin [Aspir-Low] 81 mg PO DAILY 04/13/18 04/13/18 1 Day Ago History ~04/12/18 Calcium Carbonate/Vitamin D3 1 tab PO QDAY 04/13/18 04/13/18 Unknown History [Calcium 600 with Vit D Chew Tb] Diltiazem HCl [Diltiazem ER] 120 mg PO BID 04/13/18 04/13/18 1 Day Ago History ~04/12/18 Glucosamine HCl 1,500 mg PO BID 04/13/18 04/13/18 1 Day Ago History ~04/12/18 Labetalol HCl 200 mg PO TID 04/13/18 04/13/18 Unknown History Ranitidine HCl [Acid Control] 150 mg PO DAILY 04/13/18 04/13/18 1 Day Ago History ~04/12/18 Active Meds: Active Medications Acetaminophen (Tylenol) 650 mg PO Q4H PRN PRN Reason: Pain, Mild (1-3) Last Admin: 04/13/18 17:14 Dose: 650 mg Alprazolam (Xanax) 0.5 mg PO BID [facility] Last Admin: 04/13/18 10:26 Dose: 0.5 mg Alprazolam (Xanax) 0.25 mg PO TID PRN PRN Reason: Anxiety Last Admin: 04/13/18 17:16 Dose: 0.25 mg Aspirin (Halfprin Ec) 81 mg PO DAILY [facility] Last Admin: 04/13/18 17:16 Dose: 81 mg Atorvastatin Calcium (Lipitor) 40 mg PO QHS [facility] Last Admin: 04/12/18 22:07 Dose: 40 mg Bisacodyl (Dulcolax) 10 mg [place] QDAY PRN PRN Reason: Constipation Calcium/Vitamin D (Oysco D 500 Mg-200 Unit) 1 each PO QDAY [facility] Diltiazem HCl (Cardizem Cd) 120 mg PO BID [facility] Diphenhydramine HCl (Benadryl) 25 mg PO Q6H PRN PRN Reason: Itching Hydralazine HCl (Apresoline) 5 mg IV Q6HR PRN PRN Reason: Hypertension Last Admin: 04/13/18 11:25 Dose: 5 mg Sodium Chloride (Nacl 0.45% 1000 Ml) 1,000 mls @ 125 mls/hr IV DIRECT [facility] Last Admin: 04/13/18 14:34 Dose: 125 mls/hr Labetalol HCl (Normodyne) 200 mg PO TID [facility] Levothyroxine Sodium (Synthroid) 25 mcg PO DAILY@0600 [facility] Last Admin: 04/13/18 06:07 Dose: 25 mcg Magnesium Hydroxide (Milk Of Magnesia) 30 ml PO Q4H PRN PRN Reason: Constipation Metoclopramide HCl (Reglan) 10 mg PO Q6H PRN PRN Reason: Nausea And Vomiting Miscellaneous Medication (Glucosamine Hcl [Glucosamine Hcl]) 1,500 mg PO BID [facility] Miscellaneous Medication (Ranitidine Hcl [Acid Control]) 150 mg PO DAILY [facility] Nortriptyline HCl (Pamelor) 25 mg PO DAILY [facility] Last Admin: 04/13/18 10:26 Dose: 25 mg Ondansetron HCl (Zofran) 4 mg IV Q8H PRN PRN Reason: N/V unrelieved by Reglan Pantoprazole Sodium (Protonix) 40 mg PO DAILY [facility] Last Admin: 04/13/18 10:26 Dose: 40 mg Promethazine HCl (Phenergan) 25 mg [place] Q6H PRN PRN Reason: Nausea And Vomiting Sodium Chloride (Sodium Chloride Flush Syringe 10 Ml) 10 ml IV PRN PRN PRN Reason: LINE FLUSH Tramadol HCl (Ultram) 50 mg PO Q4HR PRN PRN Reason: Pain Review of Systems All systems: negative (occasional headache, no dizziness, sometimes snores but no pauses, insomnia, no naps but may doze off at the television, never sleepy driving. Hands go to sleep during the night. No memory problems) Physical Examination - Vital Signs Vital Signs: Vital Signs Pulse Ox 98 04/11/18 15:32 - Physical Exam Narrative exam: General Appearance: well developed well nourished (per BMI) late 70s white female in [facility]. HEENT: atraumatic, normocephalic; no bruits, 2+ Courtney without soreness or induration or enlargement, sclerae nonicteric. Oropharynx pink and moist. Neck: supple, no bruits. Heart: no murmur or extra sounds. Fast rate. Extremities: no clubbing, cyanosis or edema. 1+ dorsalis pedis pulses bilaterally. Neurologic Exam: Mental Status: Awake, alert, oriented X 3, speech is clear, names pen and point of pen, and abstracts well. Names President but gives Pensky as Water Valve Mechanic , serial 7's intact, no right-left confusion, gets 2 of 3 objects at 3 minutes, spells WORLD backwards correctly. Cranial Nerves: murray full in the left eye, no light perception in right eye, no papilledema, SVPs present, right pupil 2 mm with no reaction to light, left pupil 1.5 mm with normal reaction to light and to accommodation, EOMs full without nystagmus or diplopia, facial sensation intact to pinprick and light touch, no facial weakness, Orr is midline, palate rises symmetrically to phonation and gags are positive right better than left, shoulder shrug is 5 X 2 , tongue protrudes midline. Cerebellar: finger to nose and heel to srivastava are normal. Sensory: intact to light touch, pinprick is increased in the right ring finger and decreased in the left leg, decreased vibrations left hand. Double simultaneous stimulation is intact. Special Tests: Tinel's is negative at the carpal and cubital tunnels and Guyon' s canals bilaterally. Motor Exam Upper Extremities: no drift or pronation, Tate intact. Executive Administrator are 5 X 2, tone is normal. No atrophy or fasciculations are noted visually. Motor Exam Lower Extremities: no leg lag, quadriceps and anterior tibials and gastrocnemius are 5 X 2. Tate intact. Tone is normal. No atrophy or fasciculations are noted visually. Reflexes: Palmomental, snout and jaw jerk are negative. Triceps, biceps and brachioradialis are 2 bilaterally. Nedra's is negative bilaterally. Knee jerks are 2 and ankle jerks are 0 bilaterally even with reinforcement and without clonus. Toes are downgoing right and upgoing left to Babinski testing. - Assessment Assessment Interval: Baseline - Level of Consciousness 1a. Level of Consciousness: alert - LOC Questions 1b. LOC Questions: answers correctly - LOC Command 1c. LOC Commands: performs tasks correctly - Best Gaze 2. Best Gaze: normal - Visual 3. Visual: no visual loss - Facial Palsy 4. Facial Palsy: normal symmetrical movement - Motor Arm 5b. Motor Arm Right: no drift - Motor Leg 6a. Motor Leg Left: no drift - Limb Ataxia 7. Limb Ataxia: absent - Sensory 8. Sensory: mild/moderate sensory loss - Best Language 9. Best Language: no aphasia - Dysarthria 10. Dysarthria: normal - Extinction and Inattention 11. Extinction/Inattention: no abnormality Results - Laboratory Findings CBC and BMP: 04/11/18 15:59 04/11/18 15:59 Abnormal Lab Findings: Abnormal Labs 04/11/18 04/11/18 04/11/18 15:59 15:59 15:59 RDW 12.7 L [place] % (Auto) 10.4 H APTT 45.3 H Thrombin Time 14.8 L BUN 24 H Creatinine 1.4 H Alkaline Phosphatase 149 H Cholesterol LDL Cholesterol Direct HDL Cholesterol 04/12/18 06:05 RDW [place] % (Auto) APTT Thrombin Time BUN Creatinine Alkaline Phosphatase Cholesterol 237 H LDL Cholesterol Direct 168 H HDL Cholesterol 72 H Assessment and Plan Impression: 1. Lacunar infarct, new 2. 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 Hypertension 4. Carpal tunnel syndrome Plan: 1. Echo with bubbles is pending. 2. I reduced her aspirin to 81 mg. No need for a higher dose since she has been off it for nearly 2 weeks so has not "failed" aspirin. 3. I told her it would be best to see if she can get eyelid surgery while still on aspirin, to prevent further strokes. 4. She will continue the Lipitor since it so far has not bothered her. If it later does, I would suggest trying pravastatin since that is the least likely to cause muscle side effects. 5. Gave her a print out suggesting she take vitamin B6 200 mg a day for carpal tunnel syndrome and warned her about rare buildup of B6 causing more paresthesias for which she would need to reduce the dose. I suggested wrist splints if B6 fails, to wear at night since these would tend to get in her way during the day. 6. I cancelled EEG since not needed. 50 minutes spent including review of 100s of MRI images. She was seen by someone from vascular surgery and thought a test was being ordered related to her carotid but I don't see any new test ordered so I will turn that over to Dr. Hess. Thank you for an interesting consultation on this pleasant late 70s lady. You may want to suggest to her PCP that she get a Lovenox bridge if she has to stop aspirin prior to a surgery.
[2018-04-13] MEDS: CARDIZEM CD PO SCH (21:43)
[2018-04-13] MEDS: NORMODYNE PO SCH (21:44)
[2018-04-13] MEDS ORDERED: GLUCOSAMINE HCL 1500 MG PO SCH (22:00)
[2018-04-14] MEDS: SYNTHROID PO SCH (06:25)
[2018-04-14] MEDS ORDERED: VITAMIN D3 PO SCH (10:00)
[2018-04-14] MEDS ORDERED: PEPCID PO SCH (10:00)
[2018-04-14] MEDS ORDERED: NON-FORMULARY (Ranitidine Hcl [Acid Control] 150 MG) PO SCH (10:00)
[2018-04-14] MEDS ORDERED: VIT D TB PO SCH (10:00)
[2018-04-14] MEDS ORDERED: OYSCO D 500 MG-200 UNIT PO SCH (10:00)
[2018-04-14] MEDS ORDERED: CALCIUM CARBONATE PO SCH (10:00)
[2018-04-14] MEDS: PROTONIX PO SCH (10:32)
[2018-04-14] MEDS: HALFPRIN EC PO SCH (10:32)
[2018-04-14] MEDS: XANAX PO SCH (10:32)
[2018-04-14] MEDS: CARDIZEM CD PO SCH (10:33)
[2018-04-14] MEDS: NORMODYNE PO SCH ×2 (10:37→14:24)
--- NOTE | 2018-04-14 11:09 | Progress Note ---
Assessment and Plan Patient with rigth carotid occlusion according to carotid duplex and MRA. she has a h/o amaurosis fugax in 2002 and and she remembers was told that her right ICa was occluded. However, since she came with left hemiparesis at this time it is resonable to hydrate patient and get neck CTA to exclude any possibilty of flow. Subjective Date of service: 04/14/18 Interval history: Patient fels well, motor goor all 4 extremities, admits to residual paresthesias on the left Objective - Constitutional Vitals: Vital Signs - 12hr 04/14/18 04/14/18 04/14/18 00:16 04:59 07:50 Temperature 97.7 F 97.6 F Pulse Rate 104 H 83 104 H Respiratory 17 20 16 Rate Blood Pressure 161/81 104/55 166/78 O2 Sat by Pulse 96 96 96 Oximetry 04/14/18 04/14/18 10:33 10:37 Temperature Pulse Rate 104 H 104 H Respiratory Rate Blood Pressure 166/78 166/78 O2 Sat by Pulse Oximetry - Labs CBC & Chem 7: 04/11/18 15:59 04/11/18 15:59
[2018-04-14] MEDS: PAMELOR PO SCH (11:13)
--- NOTE | 2018-04-14 12:51 | Cat Scan Report ---
CTA NECK : 04/14/18 CLINICAL: Right carotid occlusion. TECHNIQUE: Volumetric acquisition and 1.25 mm axial scan reconstructionsafter the uneventful intravenous injection of 100-cc Omnipaque 350. Consent was obtained prior to the administration of the IV contrast. Coronal and sagittal reformats were performed. Postprocessing with volume rendering was performed. FINDINGS: The right internal carotid artery is completely occluded at its origin with no residual flow identified. Normal right external carotid artery. Calcified plaque at the origin of the left ICA and a 20% stenosis of the proximal left ICA at its origin. Normal vertebral arteries with dominant left vertebral artery. IMPRESSION: 1. 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 2. Mild (20%) stenosis of the proximal left ICA based on the NASCET method of stenosis calculation. 3. Normal vertebral arteries.
--- NOTE | 2018-04-14 12:54 | Progress Note ---
Hospitalist Physical - Constitutional Vitals: Temp Pulse Resp BP Pulse Ox 97.7 F 97 H 16 169/82 94 04/14/18 12:40 04/14/18 12:40 04/14/18 12:40 04/14/18 12:40 04/14/18 12:40 General appearance: Present: no acute distress Results - Labs CBC & Chem 7: 04/11/18 15:59 04/11/18 15:59 Labs: Laboratory Last Values WBC 6.6 K/mm3 (4.5-11.0) 04/11/18 15:59 RBC 4.72 M/mm3 (3.65-5.03) 04/11/18 15:59 Hgb 13.5 gm/dl (10.1-14.3) 04/11/18 15:59 Hct 39.5 % (30.3-42.9) 04/11/18 15:59 MCV 84 fl (79-97) 04/11/18 15:59 MCH 29 pg (28-32) 04/11/18 15:59 MCHC 34 % (30-34) 04/11/18 15:59 RDW 12.7 % (13.2-15.2) L 04/11/18 15:59 Plt Count 278 K/mm3 (140-440) 04/11/18 15:59 Lymph % (Auto) 19.7 % (13.4-35.0) 04/11/18 15:59 Preston % (Auto) 10.4 % (0.0-7.3) H 04/11/18 15:59 Eos % (Auto) 2.6 % (0.0-4.3) 04/11/18 15:59 Baso % (Auto) 1.0 % (0.0-1.8) 04/11/18 15:59 Lymph # 1.3 K/mm3 (1.2-5.4) 04/11/18 15:59 Preston # 0.7 K/mm3 (0.0-0.8) 04/11/18 15:59 Eos # 0.2 K/mm3 (0.0-0.4) 04/11/18 15:59 Baso # 0.1 K/mm3 (0.0-0.1) 04/11/18 15:59 Seg Neutrophils % 66.3 % (40.0-70.0) 04/11/18 15:59 Seg Neutrophils # 4.4 K/mm3 (1.8-7.7) 04/11/18 15:59 PT 13.0 Sec. (12.2-14.9) 04/11/18 15:59 INR 0.94 (0.87-1.13) 04/11/18 15:59 APTT 45.3 Sec. (24.2-36.6) H 04/11/18 15:59 Thrombin Time 14.8 Sec. (15.1-19.6) L 04/11/18 15:59 Sodium 139 mmol/L (137-145) 04/11/18 15:59 Potassium 3.9 mmol/L (3.6-5.0) 04/11/18 15:59 Chloride 100.5 mmol/L (98-107) 04/11/18 15:59 Carbon Dioxide 27 mmol/L (22-30) 04/11/18 15:59 Anion Gap 15 mmol/L 04/11/18 15:59 BUN 24 mg/dL (7-17) H 04/11/18 15:59 Creatinine 1.4 mg/dL (0.7-1.2) H 04/11/18 15:59 Estimated GFR 36 ml/min 04/11/18 15:59 BUN/Creatinine Ratio 17 % 04/11/18 15:59 Glucose 81 mg/dL (65-100) 04/11/18 15:59 Calcium 9.8 mg/dL (8.4-10.2) 04/11/18 15:59 Total Bilirubin 0.30 mg/dL (0.1-1.2) 04/11/18 15:59 AST 19 units/L (5-40) 04/11/18 15:59 ALT 13 units/L (7-56) 04/11/18 15:59 Alkaline Phosphatase 149 units/L (35-129) H 04/11/18 15:59 Total Creatine Kinase 50 units/L (30-135) 04/11/18 15:59 CK-MB (CK-2) 2.0 ng/mL (0.0-4.0) 04/11/18 15:59 CK-MB (CK-2) Rel Index 4.0 (0-4) 04/11/18 15:59 Troponin T < 0.010 ng/mL (0.00-0.029) 04/11/18 15:59 Total Protein 7.1 g/dL (6.3-8.2) 04/11/18 15:59 Albumin 4.2 g/dL (3.9-5) 04/11/18 15:59 Albumin/Globulin Ratio 1.4 % 04/11/18 15:59 Triglycerides 136 mg/dL (2-149) 04/12/18 06:05 Cholesterol 237 mg/dL (50-199) H 04/12/18 06:05 LDL Cholesterol Direct 168 mg/dL (50-130) H 04/12/18 06:05 HDL Cholesterol 72 mg/dL (40-59) H 04/12/18 06:05 Cholesterol/HDL Ratio 3.29 % 04/12/18 06:05
--- NOTE | 2018-04-14 14:45 | Discharge Summary ---
Providers - Providers Date of Admission: 04/11/18 16:43 Attending physician: LASHONDA VALDEZ MD 04/11/18 16:43 Occupational Therapy Evaluate and Treat [CONS] Routine Comment: Reason For Exam: Neuro deficits Physical Therapy Evaluation and Treat [CONS] Routine Comment: Reason For Exam: Neuro deficits 04/11/18 16:44 Speech Therapy Evaluation and Treat [CONS] Routine Reason For Exam: swallow eval 04/12/18 14:55 Consult to Physician [CONS] Routine Comment: Consulting Provider: SHELDON HOLLIS Physician Instructions: Reason For Exam: cva/ carotid stenosis 04/12/18 14:56 Consult to Physician [CONS] Routine Comment: Consulting Provider: SHELDON GUILLEN Physician Instructions: Reason For Exam: carotid stenosis Primary care physician: DIGITAL STRATEGY DIRECTOR Hospitalization Condition: Stable Procedures: CTA neck 1. 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 2. Mild (20%) stenosis of the proximal left ICA based on the NASCET method of stenosis calculation. 3. Normal vertebral arteries. Disposition: DC-30 STILL A PATIENT Exam - Constitutional Vitals: Temp Pulse Resp BP Pulse Ox 97.7 F 97 H 16 169/82 94 04/14/18 12:40 04/14/18 14:24 04/14/18 12:40 04/14/18 14:24 04/14/18 12:40 Plan Follow up with: PRIMARY CAREMD [Primary Care Provider] - 3-5 Days Prescriptions: Pravastatin [Pravachol] 40 mg PO QHS #30 tablet Aspirin EC [Aspirin Enteric Coated TAB] 81 mg PO QDAY #30 tablet.
[2018-04-14 16:05] VITALS: BP 135/63
== END 2018-04-14 18:00 | disposition home or self-care (01) | DRG 64 ==
LOC: ED 15:13 → 4A 16:43
PROVIDERS: ADMIT Internal Medicine; ATTEND Internal Medicine
DX: I63.231 Cerebral infarction due to unspecified occlusion or stenosis of right carotid arteries (principal); N17.0 Acute kidney failure with tubular necrosis; G81.94 Hemiplegia, unspecified affecting left nondominant side; M19.90 Unspecified osteoarthritis, unspecified site; R29.701 NIHSS score 1; F41.9 Anxiety disorder, unspecified; K21.9 Gastro-esophageal reflux disease without esophagitis; Z90.710 Acquired absence of both cervix and uterus; Z82.49 Family history of ischemic heart disease and other diseases of the circulatory system; Z88.5 Allergy status to narcotic agent; Z79.01 Long term (current) use of anticoagulants; Z79.899 Other long term (current) drug therapy; Z79.82 Long term (current) use of aspirin
CPT/HCPCS: 36415; 70450; 70498; 70544; 70551; 80053; 80061; 82550; 82553; 84484; 85025; 85610; 85670; 85730; 93005; 93010; 93306; 93880; A9270-GY; G8978-GP; G8979-GP; G8987-GO; G8988-GO; G8996-GN; G8997-GN; G8998-GN; J0360; Q9967

== ENCOUNTER 2018-11-14 13:13 | Outpatient (CLI) | payer MEDICARE ==
--- NOTE | 2018-11-14 14:18 | Mammography Report ---
BONE DENSITY STUDY: Osteoporosis screening. DEFINITIONS: BMD = Bone Mineral Density T-score = BMD related to mean peak bone mass of young adult (mean expressed in Standard Deviation) Z-score = Age matched BMD expressed in SD World Health Organization (WHO) Diagnostic Criteria Normal T-score > -1 SD Osteopenia T-score between -1 and -2.4 SD Osteoporosis T-score -2.5 SD or below FINDINGS: The weighted average BMD of lumbar spine L1-L2 is 1.153 with a T-score of 1.6. The L3 and L4 bodies compromise with degenerative sclerosis. The weighted average BMD of the left hip is 1.011 with a T-score of 0.6. IMPRESSION: The patient's average T-score is diagnostic for normal bone density and low relative risk for fracture. NOTE: BMD is not the only risk factor for fracture; also consider factors such as the patient's age, risk of falling, previous osteoporotic fracture, family history of osteoporotic fractures, current smoker, and low body weight. Soni's triangle is a region of interest in femur, predominantly of trabecular bone. It is not a true anatomic site, and ISCD does not recommend its use clinically.
== END 2018-11-14 13:14 | disposition home or self-care (01) ==
LOC: MAMMO 13:13
PROVIDERS: ATTEND Internal Medicine
DX: M85.88 Other specified disorders of bone density and structure, other site (principal); K21.9 Gastro-esophageal reflux disease without esophagitis; I10 Essential (primary) hypertension; M19.90 Unspecified osteoarthritis, unspecified site; Z90.710 Acquired absence of both cervix and uterus
CPT/HCPCS: 77080

== ENCOUNTER 2019-03-22 10:17 | Inpatient (IN) | payer MEDICARE ==
--- NOTE | 2019-03-22 13:16 | Consultation ---
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 Recently patient had symptoms suggestive of Amaurosis fugax. Vascular wants to do CTA neck to r/o carotid artery disease. Patient currently denies any symptoms. Most recent creatinine was 1.8. Nephrology was consulted for recommendation to prevent contrast induced Nephropathy. Past History Past Medical History: hypertension, hyperlipidemia, other (PAD, Panic attack) Medications and Allergies Allergies Allergy/AdvReac Type Severity Reaction Status Date / Time codeine Allergy Unknown Verified 04/11/18 15:43 crabmeat Allergy Swelling Uncoded 04/11/18 15:43 Home Medications Medication Instructions Recorded Confirmed Last Taken Type Diltiazem HCl [Diltiazem 24Hr ER] 120 mg PO BID 10/18/13 03/22/19 03/22/19 07:00 History Labetalol [Labetalol 200mg TAB] 200 mg PO TID 10/18/13 03/22/19 03/22/19 07:00 History Levothyroxine [Synthroid] 25 mcg PO DAILY 10/18/13 03/22/19 03/22/19 07:00 History Nortriptyline [Pamelor] 25 mg PO DAILY 10/18/13 03/22/19 03/22/19 07:00 History Pantoprazole [Protonix TAB] 40 mg PO 1400 10/18/13 03/22/19 03/21/19 14:00 History ALPRAZolam [Xanax TAB] 0.25 mg PO TID PRN 04/11/18 03/22/19 03/22/19 07:00 History traMADol [Ultram 50 MG tab] 50 mg PO Q4HR PRN 04/11/18 03/22/19 Unknown History Calcium Carbonate/Vitamin D3 1 tab PO QDAY 04/13/18 03/22/19 03/22/19 07:00 History [Calcium 600 with Vit D Chew Tb] Glucosamine HCl 1,500 mg PO BID 04/13/18 03/22/19 03/22/19 07:00 History Ranitidine HCl [Acid Control] 150 mg PO DAILY 04/13/18 03/22/19 03/22/19 07:00 History Aspirin EC 81 mg PO QDAY #30 tablet. 04/14/18 03/22/19 03/22/19 07:00 Rx Pravastatin [Pravachol] 40 mg PO QHS #30 tablet 04/14/18 03/22/19 03/21/19 22:00 Rx Melatonin [Melatonin 3MG TAB] 3 mg PO HS 03/22/19 03/22/19 03/21/19 22:00 History Vitamin B-6 100 mg PO DAILY 03/22/19 03/22/19 03/22/19 07:00 History Active Meds: Active Medications Acetylcysteine (Mucomyst Oral) 600 mg PO Q12HR MEJIA Sodium Bicarbonate 150 meq/ (Sterile Water) 1,150 mls @ 100 mls/hr IV DIRECT MEJIA Review of Systems Constitutional: no weight loss, no weight gain, no fever, no chills, no anorexia, no weakness Breasts: deferred Cardiovascular: high blood pressure, no chest pain, no orthopnea, no palpitations, no edema, no syncope, no lightheadedness, no shortness of breath, no leg edema, no decreased exercise tolerance Respiratory: no cough, no hemoptysis, no shortness of breath, no dyspnea on exertion Gastrointestinal: no abdominal pain, no nausea, no vomiting, no melena Genitourinary Female: no dysuria, no hematuria Rectal: no bleeding Musculoskeletal: no morning stiffness, no muscle weakness Integumentary: no rash, no sores, no wounds, no jaundice Neurological: loss of vision (R eye), no paralysis, no weakness, no seizures, no syncope, no change in speech, no change in mentation, no confusion Psychiatric: anxiety attacks Exam - Vital Signs Vital signs: Vital Signs Temp Pulse Resp BP Pulse Ox 98.4 F 71 20 148/64 98 03/22/19 12:31 03/22/19 12:31 03/22/19 12:31 03/22/19 12:31 03/22/19 12:31 - General Appearance General appearance: well-developed, well-nourished, appears stated age, other (no distress) EENT: ATNC Neck: Present: neck supple, trachea midline Respiratory: Clear to Ascultation Heart: regular, S1S2, no murmurs Gastrointestinal: Present: normoactive bowel sounds. Absent: tenderness, distended Integumentary: no rash, warm and dry Neurologic: no asterixis, alert and oriented x3, other (R eye blind) Musculoskeletal: Present: other (no edema) Results - Lab Results 03/22/19 13:16 03/22/19 13:16 Assessment and Plan 1. Amaurosis fugax: Suspected carotid disease. CTA of Head and neck ordered. Follow results. 2. CKD stage 3: Renal function appears to be at her baseline. Contrast prophylaxis. On bicarb IV and Mucomyst. Explained patient the renal risks of IV contrast. Monitor renal function. 3. Hypertension. 4. Previous h/o CVA.
[2019-03-22 13:50] LABS: Basophils % (Auto) 0.7 % (0.0-1.8); Eosinophils # (Auto) 0.2 K/mm3 (0.0-0.4); Eosinophils % (Auto) 2.6 % (0.0-4.3); Hematocrit 36.7 % (30.3-42.9); Hemoglobin 12.4 gm/dl (10.1-14.3); Lymphocytes # (Auto) 1.3 K/mm3 (1.2-5.4); Lymphocytes % (Auto) 18.4 % (13.4-35.0); Mean Corpuscular HGB Conc 34 % (30-34); Mean Corpuscular Volume 85 fl (79-97); Monocytes # (Auto) 0.5 K/mm3 (0.0-0.8); Monocytes % (Auto) 7.3 % (0.0-7.3); Platelet Count 252 K/mm3 (140-440); Red Blood Count 4.33 M/mm3 (3.65-5.03); Red Cell Distribution Width 13.1 % (13.2-15.2)
[2019-03-22] MEDS: MUCOMYST ORAL PO SCH ×2 (13:58→21:31)
[2019-03-22] MEDS ORDERED: SODIUM BICARBONATE 150 MEQ in STERILE WATER 1,000 ML IV SCH (14:00)
[2019-03-22 14:15] LABS: Albumin 4.2 g/dL (3.9-5); Calcium 9.5 mg/dL (8.4-10.2)
[2019-03-22] MEDS ORDERED: APRESOLINE IV PRN (20:24)
[2019-03-22] MEDS ORDERED: DILAUDID IV PRN (22:44)
[2019-03-22] MEDS ORDERED: ZOFRAN IV PRN (22:44)
[2019-03-22] MEDS ORDERED: PERCOCET 5/325 PO PRN (22:44)
[2019-03-22] MEDS ORDERED: TYLENOL PO PRN (22:44)
[2019-03-22] MEDS ORDERED: SODIUM CHLORIDE FLUSH SYRINGE 10 ML IV PRN (22:44)
[2019-03-22] MEDS ORDERED: ULTRAM PO PRN (22:45)
[2019-03-22] MEDS ORDERED: XANAX PO PRN (22:45)
[2019-03-22] MEDS ORDERED: DILTIAZEM HCL 120 MG PO SCH (23:00)
[2019-03-22] MEDS ORDERED: NACL 0.9% 1000 ML 1,000 ML IV SCH (23:00)
[2019-03-22] MEDS: CARDIZEM CD PO SCH (23:56)
[2019-03-23 05:43] LABS: Basophils % (Auto) 0.7 % (0.0-1.8); Eosinophils # (Auto) 0.2 K/mm3 (0.0-0.4); Eosinophils % (Auto) 2.7 % (0.0-4.3); Hematocrit 35.4 % (30.3-42.9); Hemoglobin 12.3 gm/dl (10.1-14.3); Lymphocytes # (Auto) 1.4 K/mm3 (1.2-5.4); Lymphocytes % (Auto) 22.5 % (13.4-35.0); Mean Corpuscular HGB Conc 35 % (30-34); Mean Corpuscular Volume 84 fl (79-97); Monocytes # (Auto) 0.6 K/mm3 (0.0-0.8); Monocytes % (Auto) 9.8 % (0.0-7.3); Platelet Count 227 K/mm3 (140-440); Red Blood Count 4.22 M/mm3 (3.65-5.03)
[2019-03-23] MEDS ORDERED: SYNTHROID PO SCH (06:00)
[2019-03-23 06:10] LABS: Calcium 9.4 mg/dL (8.4-10.2)
--- NOTE | 2019-03-23 06:53 | Event Note ---
Date: 03/22/19 See h/p in reports Amaurosis Fugax TRICIA/CKD HTN Hypothyroidism
--- NOTE | 2019-03-23 07:02 | History and Physical Report ---
CHIEF COMPLAINT: Right eye blindness with sudden onset. HISTORY OF PRESENT ILLNESS: A 78-year-old female with stable chronic kidney disease, hypertension, being admitted for sudden onset of right eye blindness. The patient had multiple CVAs in the past. The patient is being evaluated for evaluation of amaurosis fugax. Most recent creatinine was 1.8. The patient is being admitted to prevent contrast-induced nephropathy and to get CT angiogram of the neck to rule out carotid artery disease. No focal deficits. PAST MEDICAL HISTORY: Significant for hypertension, hypothyroidism, chronic kidney disease, hyperlipidemia, and GERD. PAST SURGICAL HISTORY: Hysterectomy, many years ago. SOCIAL HISTORY: Does not smoke. Lives with her , who is very supportive. FAMILY HISTORY: Hypertension. REVIEW OF SYSTEMS: Significant for the sudden onset of blindness in the right eye, which is resolving. Otherwise, review of systems negative. PHYSICAL EXAMINATION: GENERAL: Elderly female, cooperative during examination. VITAL SIGNS: Blood pressure is 170/68, temperature is 97.6, pulse is 82, respirations are 18, sats are 94%. HEENT: Unremarkable. Pupils equal and reactive. NECK: Supple, no lymphadenopathy, no thyromegaly. LUNGS: Clear to auscultation and percussion. Good air entry. CARDIOVASCULAR: S1, S2 heard. No gallop, no murmur, no rub. Apical impulse in the left fifth intercostal space and midclavicular line. ABDOMEN: Soft and benign. No hepatosplenomegaly. No guarding, no rigidity. Hernial orifices are normal. EXTREMITIES: Good pedal pulses. No pedal edema. CENTRAL NERVOUS SYSTEM: Alert and oriented x 4, nonfocal exam. SKIN: Normal. LABORATORY DATA: Significant for normal CBC, white count of 7100, BUN and creatinine is 24 and 1.5, sodium and potassium are normal, glucose is 119. Neck CTA was done and the head CTA was done, reports are pending. ASSESSMENT AND PLAN: 1. Amaurosis fugax. CTA neck and CTA head done.Report pending MRI head and MRA and MRI of the brain were ordered. Complete stroke workup was not ordered. 2. Acute kidney injury. The patient to be on IV fluids, creatinine is 1.6. 3. Chronic kidney disease, defer to Nephrology, Dr. Davis. 4. Hypertension. Continue antihypertensives. 5. Hypothyroidism. Continue levothyroxine. 6. Generalized anxiety disorder. Continue Xanax. 7. Deep venous thrombosis prophylaxis, heparin 5000 q. 12 hours. JOB# [id number] INOCENCIA/CRISTIANE PEREZ
--- NOTE | 2019-03-23 07:53 | Progress Note ---
Assessment and Plan Assessment and plan: --Rt eye blindness; Amaurosis Fugax; with history of total occlusion of right carotid artery Evaluated by vascular, follow current workup, consult vascular if needed --Acute kidney injury; vasomotor nephropathy Gentle hydration, avoid nephrotoxins, today creatinine is within normal limits Nephrology following --Hypokalemia; replace KCl monitor electrolytes --Hypertension; new current antihypertensives when necessary hydralazine --History of hypothyroidism; Synthroid --History of anxiety disorder; continue Xanax and supportive care --DVT prophylaxis; Lovenox Monitor closely and adjust management as needed History Interval history: 78-year-old female patient with significant past medical history of multiple CVAs, total occlusion of right carotid artery since 2002 Evaluated by vascular in the past, was admitted for further evaluation and manag ement of right eye blindness sudden onset as well as acute renal failure Neuro workup is in progress. Patient was evaluated by neurology and vascular getting the last admission Hospitalist Physical - Constitutional Vitals: Temp Pulse Resp BP Pulse Ox 97.7 F 86 18 145/78 95 03/23/19 02:23 03/23/19 02:23 03/23/19 02:23 03/23/19 02:23 03/23/19 02:23 Results - Labs CBC & Chem 7: 03/23/19 04:44 03/23/19 04:44 Labs: Laboratory Last Values WBC 6.2 K/mm3 (4.5-11.0) 03/23/19 04:44 RBC 4.22 M/mm3 (3.65-5.03) 03/23/19 04:44 Hgb 12.3 gm/dl (10.1-14.3) 03/23/19 04:44 Hct 35.4 % (30.3-42.9) 03/23/19 04:44 MCV 84 fl (79-97) 03/23/19 04:44 MCH 29 pg (28-32) 03/23/19 04:44 MCHC 35 % (30-34) H 03/23/19 04:44 RDW 13.0 % (13.2-15.2) L 03/23/19 04:44 Plt Count 227 K/mm3 (140-440) 03/23/19 04:44 Lymph % (Auto) 22.5 % (13.4-35.0) 03/23/19 04:44 Brantley % (Auto) 9.8 % (0.0-7.3) H 03/23/19 04:44 Eos % (Auto) 2.7 % (0.0-4.3) 03/23/19 04:44 Baso % (Auto) 0.7 % (0.0-1.8) 03/23/19 04:44 Lymph # 1.4 K/mm3 (1.2-5.4) 03/23/19 04:44 Brantley # 0.6 K/mm3 (0.0-0.8) 03/23/19 04:44 Eos # 0.2 K/mm3 (0.0-0.4) 03/23/19 04:44 Baso # 0.0 K/mm3 (0.0-0.1) 03/23/19 04:44 Seg Neutrophils % 64.3 % (40.0-70.0) 03/23/19 04:44 Seg Neutrophils # 4.0 K/mm3 (1.8-7.7) 03/23/19 04:44 Sodium 145 mmol/L (137-145) 03/23/19 04:44 Potassium 3.4 mmol/L (3.6-5.0) L 03/23/19 04:44 Chloride 101.4 mmol/L (98-107) 03/23/19 04:44 Carbon Dioxide 30 mmol/L (22-30) 03/23/19 04:44 17 mmol/L 03/23/19 04:44 BUN 18 mg/dL (7-17) H 03/23/19 04:44 1.2 mg/dL (0.7-1.2) 03/23/19 04:44 Estimated GFR 43 ml/min 03/23/19 04:44 15 % 03/23/19 04:44 Glucose 108 mg/dL (65-100) H 03/23/19 04:44 5.8 % (4-6) 03/22/19 23:08 Calcium 9.4 mg/dL (8.4-10.2) 03/23/19 04:44 0.40 mg/dL (0.1-1.2) 03/22/19 13:16 AST 21 units/L (5-40) 03/22/19 13:16 ALT 17 units/L (7-56) 03/22/19 13:16 136 units/L (35-129) H 03/22/19 13:16 6.7 g/dL (6.3-8.2) 03/22/19 13:16 4.2 g/dL (3.9-5) 03/22/19 13:16 1.7 % 03/22/19 13:16 Active Medications - Current Medications Current Medications: Generic Name Dose Route Start Last Admin Trade Name Freq PRN Reason Stop Dose Admin Acetaminophen 650 mg 03/22/19 22:44 03/22/19 23:52 Tylenol PO 650 mg Q4H PRN Administration Pain MILD(1-3)/Fever >100.5/LOUIS Acetylcysteine 600 mg 03/22/19 14:00 03/22/19 21:31 Mucomyst Oral PO 600 mg Q12HR MEJIA Administration Alprazolam 0.25 mg 03/22/19 22:45 03/23/19 03:49 Xanax PO 0.25 mg TID PRN Administration Anxiety Aspirin 81 mg 03/23/19 10:00 Halfprin Ec PO QDAY MEJIA Diltiazem HCl 120 mg 03/22/19 23:00 03/22/19 23:56 Cardizem Cd PO 120 mg BID MEJIA Administration Hydralazine HCl 10 mg 03/22/19 20:24 03/22/19 20:43 Apresoline IV 10 mg Q4HR PRN Administration Blood Pressure Hydromorphone HCl 0.5 mg 03/22/19 22:44 Dilaudid IV Q3H PRN Pain , Severe (7-10) Sodium Bicarbonate 150 meq/ 1,150 mls @ 30 mls/hr 03/22/19 14:00 03/22/19 13:51 Sterile Water IV 100 mls/hr DIRECT MEJIA Administration Labetalol HCl 200 mg 03/23/19 08:00 Normodyne PO TID MEJIA Levothyroxine Sodium 25 mcg 03/23/19 06:00 03/23/19 05:54 Synthroid PO 25 mcg DAILY@0600 MEJIA Administration Miscellaneous Medication 3 mg 03/23/19 22:00 Melatonin [Melatonin 3mg Tab] PO HS [facility] Multivitamins/Minerals 1 each 03/23/19 10:00 Caltrate Plus PO QDAY MEJIA Nortriptyline HCl 25 mg 03/23/19 10:00 Pamelor PO DAILY MEJIA Ondansetron HCl 4 mg 03/22/19 22:44 Zofran IV Q8H PRN Nausea And Vomiting Oxycodone/Acetaminophen 1 tab 03/22/19 22:44 Percocet 5/325 PO Q6H PRN Pain, Moderate (4-6) Pantoprazole Sodium 40 mg 03/23/19 14:00 Protonix PO 1400 [facility] Potassium Chloride 40 meq 03/23/19 08:00 K-Dur PO 03/23/19 08:01 ONCE ONE Pravastatin Sodium 40 mg 03/23/19 22:00 Pravachol PO QHS [facility] Pyridoxine HCl 100 mg 03/23/19 10:00 Vitamin B-6 PO QDAY [facility] Sodium Chloride 10 ml 03/23/19 10:00 Sodium Chloride Flush Syringe 10 Ml IV BID [facility] Sodium Chloride 10 ml 03/22/19 22:44 Sodium Chloride Flush Syringe 10 Ml IV PRN PRN LINE FLUSH Tramadol HCl 50 mg 03/22/19 22:45 Ultram PO Q4HR PRN Pain
[2019-03-23] MEDS ORDERED: K-DUR PO ONE (08:00)
[2019-03-23] MEDS ORDERED: VITAMIN D3 PO SCH (10:00)
[2019-03-23] MEDS ORDERED: PEPCID PO SCH (10:00)
[2019-03-23] MEDS ORDERED: VITAMIN B6 100 MG PO SCH (10:00)
[2019-03-23] MEDS ORDERED: HALFPRIN EC PO SCH (10:00)
[2019-03-23] MEDS ORDERED: SODIUM CHLORIDE FLUSH SYRINGE 10 ML IV SCH (10:00)
[2019-03-23] MEDS ORDERED: PAMELOR PO SCH (10:00)
[2019-03-23] MEDS ORDERED: VIT D TB PO SCH (10:00)
[2019-03-23] MEDS ORDERED: CALTRATE PLUS PO SCH (10:00)
[2019-03-23] MEDS ORDERED: NON-FORMULARY (Ranitidine Hcl [Acid Control] 150 MG) PO SCH (10:00)
[2019-03-23] MEDS ORDERED: VITAMIN B-6 PO SCH (10:00)
[2019-03-23] MEDS ORDERED: CALCIUM CARBONATE PO SCH (10:00)
[2019-03-23] MEDS: MUCOMYST ORAL PO SCH (10:07)
[2019-03-23] MEDS: NORMODYNE PO SCH ×2 (10:11→13:39)
[2019-03-23] MEDS: CARDIZEM CD PO SCH (10:11)
--- NOTE | 2019-03-23 12:09 | Progress Note ---
Assessment and Plan 1. Acute kidney injury: Vasomotor TRICIA superimposed on CKD stage 3. Renal function is better. Encouraged PO fluids. No e/o contrast induce nephropathy. 2. Amaurosis fugax: CTA of Head and neck with no new changes. 3. Hypertension. 4. Previous h/o CVA. F/u with me in 2-4 weeks. Subjective Date of service: 03/23/19 Interval history: Patient was seen and examined at the bedside. Doing ok. Objective - Vital Signs Vital signs: Vital Signs - 12hr 03/23/19 03/23/19 03/23/19 02:23 07:46 10:00 Temperature 97.7 F 97.5 F L Pulse Rate 86 87 87 Respiratory 18 20 Rate Blood Pressure 145/78 139/91 O2 Sat by Pulse 95 94 Oximetry 03/23/19 10:11 Temperature Pulse Rate 87 Respiratory Rate Blood Pressure 139/91 O2 Sat by Pulse Oximetry - General Appearance General appearance: well-developed, well-nourished, appears stated age, other ( no distress) EENT: ATNC, PERRL, mucous membranes moist, hearing diminished Neck: supple Respiratory: Present: Clear to Ascultation Cardiology: regular, S1S2, no murmurs Gastrointestinal: normoactive bowel sounds, no tenderness, no distended Integumentary: no rash, warm and dry Neurologic: no asterixis, alert and oriented x3, other (R eye blind) Musculoskeletal: other (no edema) - Lab 03/23/19 04:44 03/23/19 04:44 Most recent lab results Calcium 9.4 mg/dL (8.4-10.2) 03/23/19 04:44 Medications & Allergies - Medications Allergies/Adverse Reactions: Allergies codeine Allergy (Verified 04/11/18 15:43) Unknown crabmeat Allergy (Uncoded 04/11/18 15:43) Swelling Home Medications: Home Medications Medication Instructions Recorded Confirmed Last Taken Type Diltiazem HCl [Diltiazem 24Hr ER] 120 mg PO BID 10/18/13 03/22/19 03/22/19 07:00 History Labetalol [Labetalol 200mg TAB] 200 mg PO TID 10/18/13 03/22/19 03/22/19 07:00 History Levothyroxine [Synthroid] 25 mcg PO DAILY 10/18/13 03/22/19 03/22/19 07:00 History Nortriptyline [Pamelor] 25 mg PO DAILY 10/18/13 03/22/19 03/22/19 07:00 History Pantoprazole [Protonix TAB] 40 mg PO 1400 10/18/13 03/22/19 03/21/19 14:00 History ALPRAZolam [Xanax TAB] 0.25 mg PO TID PRN 04/11/18 03/22/19 03/22/19 07:00 History traMADol [Ultram 50 MG tab] 50 mg PO Q4HR PRN 04/11/18 03/22/19 Unknown History Calcium Carbonate/Vitamin D3 1 tab PO QDAY 04/13/18 03/22/19 03/22/19 07:00 History [Calcium 600 with Vit D Chew Tb] Glucosamine HCl 1,500 mg PO BID 04/13/18 03/22/19 03/22/19 07:00 History Ranitidine HCl [Acid Control] 150 mg PO DAILY 04/13/18 03/22/19 03/22/19 07:00 History Aspirin EC 81 mg PO QDAY #30 tablet. 04/14/18 03/22/19 03/22/19 07:00 Rx Pravastatin [Pravachol] 40 mg PO QHS #30 tablet 04/14/18 03/22/19 03/21/19 22:00 Rx Melatonin [Melatonin 3MG TAB] 3 mg PO HS 03/22/19 03/22/19 03/21/19 22:00 History Vitamin B-6 100 mg PO DAILY 03/22/19 03/22/19 03/22/19 07:00 History Active Medications: Generic Name Dose Route Start Last Admin Trade Name Freq PRN Reason Stop Dose Admin Acetaminophen 650 mg 03/22/19 22:44 03/22/19 23:52 Tylenol PO 650 mg Q4H PRN Administration Pain MILD(1-3)/Fever >100.5/[place] Acetylcysteine 600 mg 03/22/19 14:00 03/23/19 10:07 Mucomyst Oral PO 600 mg Q12HR MEJIA Administration Alprazolam 0.25 mg 03/22/19 22:45 03/23/19 03:49 Xanax PO 0.25 mg TID PRN Administration Anxiety Aspirin 81 mg 03/23/19 10:00 03/23/19 10:11 Halfprin Ec PO 81 mg QDAY MEJIA Administration Diltiazem HCl 120 mg 03/22/19 23:00 03/23/19 10:11 Cardizem Cd PO 120 mg BID MEJIA Administration Hydralazine HCl 10 mg 03/22/19 20:24 03/22/19 20:43 Apresoline IV 10 mg Q4HR PRN Administration Blood Pressure Hydromorphone HCl 0.5 mg 03/22/19 22:44 Dilaudid IV Q3H PRN Pain , Severe (7-10) Sodium Bicarbonate 150 meq/ 1,150 mls @ 30 mls/hr 03/22/19 14:00 03/22/19 13:51 Sterile Water IV 100 mls/hr DIRECT MEJIA Administration Labetalol HCl 200 mg 03/23/19 08:00 03/23/19 10:11 Normodyne PO 200 mg TID MEJIA Administration Levothyroxine Sodium 25 mcg 03/23/19 06:00 03/23/19 05:54 Synthroid PO 25 mcg DAILY@0600 MEJIA Administration Miscellaneous Medication 3 mg 03/23/19 22:00 Melatonin [Melatonin 3mg Tab] PO HS [facility] Multivitamins/Minerals 1 each 03/23/19 10:00 03/23/19 10:10 Caltrate Plus PO 1 each QDAY MEJIA Administration Nortriptyline HCl 25 mg 03/23/19 10:00 03/23/19 10:09 Pamelor PO 25 mg DAILY MEJIA Administration Ondansetron HCl 4 mg 03/22/19 22:44 Zofran IV Q8H PRN Nausea And Vomiting Oxycodone/Acetaminophen 1 tab 03/22/19 22:44 Percocet 5/325 PO Q6H PRN Pain, Moderate (4-6) Pantoprazole Sodium 40 mg 03/23/19 14:00 Protonix PO 1400 [facility] Pravastatin Sodium 40 mg 03/23/19 22:00 Pravachol PO QHS MEJIA Pyridoxine HCl 100 mg 03/23/19 10:00 03/23/19 10:10 Vitamin B-6 PO 100 mg QDAY MEJIA Administration Sodium Chloride 10 ml 03/23/19 10:00 03/23/19 10:06 Sodium Chloride Flush Syringe 10 Ml IV 10 ml BID MEJIA Administration Sodium Chloride 10 ml 03/22/19 22:44 Sodium Chloride Flush Syringe 10 Ml IV PRN PRN LINE FLUSH Tramadol HCl 50 mg 03/22/19 22:45 Ultram PO Q4HR PRN Pain
[2019-03-23 13:18] VITALS: BP 149/63
[2019-03-23] MEDS ORDERED: PROTONIX PO SCH (14:00)
--- NOTE | 2019-03-23 17:25 | Cat Scan Report ---
PROCEDURE: CT ANGIO NECK, CT ANGIO HEAD TECHNIQUE: Axial images obtained head and neck following intravenous administration of contrast. Sag ittal and coronal 3-D reformatted images obtained for angiographic technique. NASCET criteria utilize d for stenosis determination. HISTORY: Amaurosis fugax, carotid artery stenosis. COMPARISONS: CTA head and neck April 14, 2018 FINDINGS: CTA neck: Atherosclerotic calcification of the aortic arch. No aneurysmal dilatation. Brachiocephalic trunk and proximal right subclavian artery demonstrate no plaque. 0% stenosis Right common carotid artery is tortuous. 0% stenosis. The right internal carotid artery is occluded a t the bulb. This finding was present prior study. Right external carotid artery is patent. Left common carotid artery arises from the arch. Prominent tortuosity. 0% stenosis. Calcific plaque l eft carotid bulb. Stenosis less than 50%. Left internal carotid artery is tortuous. Left external car otid artery patent. Left subclavian artery demonstrates 0% stenosis. No plaque. The bilateral vertebral arteries arise from the subclavian arteries. Proximal tortuosity. 0% stenosis . Symmetric size. Advanced multilevel cervical degenerative disc disease and facet arthropathy Lung apices demonstrate no consolidation or effusion CTA head: Bilateral V4 segments demonstrates 0% stenosis Basilar artery is widely patent. 0% stenosis. No aneurysm at the tip. Posterior cerebral arteries arise from the basilar tip. No significant stenosis by NASCET criteria Ri ght internal carotid artery is occluded to the skull base. Left internal carotid artery demonstrates minimal plaque. 0% stenosis Bilateral anterior cerebral arteries are patent with no significant stenosis by NASCET criteria. Left A1 segment is dominant. The bilateral middle cerebral arteries are patent. No significant stenosis by NASCET criteria No aneurysm identified. Major dural venous sinuses are patent. IMPRESSION: CTA neck: Right internal carotid artery is occluded at the bulb. Major vessels of the neck otherwise demonstrate no significant stenosis by NASCET criteria No significant interval change from prior study.. CTA HEAD: Distal right internal carotid artery occluded Major vessels [place] of [place] otherwise patent with no significant stenosis by [employer] criteria This document is electronically signed by Kelton Live MD., March 23 2019 05:24:16 PM ET
--- NOTE | 2019-03-23 18:01 | Discharge Summary ---
Providers - Providers Date of Admission: 03/22/19 11:56 Date of discharge: 03/23/19 Attending physician: ROSMERY SALAS 03/22/19 22:44 Consult to Physician [CONS] Routine Comment: Consulting Provider: SHIMON GARCIA Physician Instructions: Reason For Exam: TRICIA Primary care physician: STEPHON MORTON Hospitalization Reason for admission: Right eye blindness/acute renal failure Pertinent studies: CTA head; distal right internal carotid artery occluded Major vessel [place] otherwise patent and no significant stenosis CTA neck; right internal carotid artery occluded at the bulb Major vessels of the neck otherwise demonstrated no significant stenosis and no significant changes from the prior study Hospital course: 78-year-old female patient with significant past medical history of multiple CVAs, total occlusion of right carotid artery since 2002;Evaluated by vascular in the past, was admitted for further evaluation and management of right eye blindness as well as acute renal failure, As per Her past medical records patient had these symptoms since 2002, extensively evaluated by neurologists, and patient will follow up with private vascular and urology upon discharge. Patient had CTA neck and CTA head revealed complete occlusion of right carotid artery, no change since the previous exam,, patient has no new neurological symptoms, Managed acute kidney injury with IV hydration and supportive care, renal function returned to normal range Today patient is comfortable in no new complaints vital signs stable, Physical examination no new changes Hemodynamically and clinically stable cleared by blood bank laboratory technician Dr. yobany horan[who initially directly admitted the patient to the hospitalists group] Cleared for discharge and follow up with him, her private vascular, her private neurologist and private janitorial cleaner upon discharge Patient did not need any new prescriptions Advised to continue all her home medications as before Also advised fall precautions Discharge diagnosis; --Rt eye blindness; Amaurosis F[place]; with history of total occlusion of right carotid artery Evaluated by vascular, follow current workup, consult vascular if needed --Acute kidney injury; vasomotor nephropathy Gentle hydration, avoid nephrotoxins, today creatinine is within normal limits Nephrology following --Hypokalemia; replace KCl monitor electrolytes --Hypertension; new current antihypertensives when necessary hydralazine --History of hypothyroidism; Synthroid --History of anxiety disorder; continue Xanax and supportive care --DVT prophylaxis; Lovenox Monitor closely and adjust management as needed Disposition: - TO HOME OR SELFCARE Time spent for discharge: 32 min Core Measure Documentation - Palliative Care Palliative Care/ Comfort Measures: Not Applicable - Core Measures Any of the following diagnoses?: none Exam - Constitutional Vitals: Temp Pulse Resp BP Pulse Ox 98.6 F 97 H 20 149/63 95 03/23/19 13:03 03/23/19 13:39 03/23/19 13:03 03/23/19 13:39 03/23/19 13:03 General appearance: Present: no acute distress, well-nourished - EENT Eyes: Present: PERRL, EOM intact - Neck Neck: Present: supple, normal ROM - Respiratory Respiratory effort: normal Respiratory: negative: rales, rhonchi, wheezing - Cardiovascular Rhythm: regular Heart Sounds: Present: S1 & S2 - Extremities Extremities: no ischemia, No edema - Abdominal General gastrointestinal: Present: soft, non-tender, non-distended, normal bowel sounds - Integumentary Integumentary: Present: clear, warm - Musculoskeletal Musculoskeletal: strength equal bilaterally - Psychiatric Psychiatric: appropriate mood/affect, cooperative - Neurologic Neurologic: other (right eye blindness/total occlusion of right carotid) Plan Activity: advance as tolerated, fall precautions Diet: other (cardiac diet) Additional Instructions: Follow-up private vascular/neurology as needed. Continue all your home medications as before. No New prescriptions needed. Fall Precautions Follow up with: STEPHON MORTON MD [Primary Care Provider] - 7 Days SHIMON GARCIA MD [Staff Physician] - 7 Days
[2019-03-23] MEDS ORDERED: PRAVACHOL PO SCH (22:00)
[2019-03-23] MEDS ORDERED: MELATONIN 3 MG PO SCH (22:00)
== END 2019-03-23 19:10 | disposition home or self-care (01) | DRG 683 ==
LOC: UNDOADMIN 10:17 → 2B-ACE 10:17
PROVIDERS: ADMIT Internal Medicine; ATTEND Internal Medicine
DX: N17.0 Acute kidney failure with tubular necrosis (principal); G45.3 Amaurosis fugax; E87.6 Hypokalemia; E03.9 Hypothyroidism, unspecified; N18.3 Chronic kidney disease, stage 3 (moderate); I12.9 Hypertensive chronic kidney disease with stage 1 through stage 4 chronic kidney disease, or unspecified chronic kidney disease; K21.9 Gastro-esophageal reflux disease without esophagitis; F41.1 Generalized anxiety disorder; Z86.73 Personal history of transient ischemic attack (TIA), and cerebral infarction without residual deficits; Z90.710 Acquired absence of both cervix and uterus; Z88.5 Allergy status to narcotic agent; Z82.49 Family history of ischemic heart disease and other diseases of the circulatory system
CPT/HCPCS: 36415; 70496; 70498; 80048; 80053; 83036; 85025; G0378; J0360; Q9967